=== PATIENT | female | born 1945 | race Caucasian/White ===

== ENCOUNTER 2023-08-13 11:17 | Observation (INO) ==
--- OUTSIDE RECORDS SUMMARY | 2023-08-13 11:20 | External Medical Summary | Continuity of Care Document ---
Author Name Unknown Organization [facility] Address [address] [place] [id number] Care Team Providers Care Supervisor Housecleaner Name Role Phone Suzanne Lester Primary Care Physician [phone] Encounter [facility] [id number] Date(s): 05/17/23 - 05/17/[address] [phone] Discharge Disposition: Home or Self Care Attending Physician: DO Lester Regina W Referring Physician: DO Lester Regina W Results Radiology Reports * Exam Date Time Procedure Performing Provider Status 05/17/23 10:03 AM VL Ankle-Brachial Index- Limited Gisell Ceballos; Final Notes: (VL Ankle-Brachial Index- Limited) Reason For Exam: Arterial Duplex - Other disorder of circulatorysystem VL Ankle-Brachial Index- Limited [facility] FINAL REPORT Name: WILFREDO CASTELLANO : 1945 Visit: [id number] Date: 17 May 2023 TYPE OF TEST: Peripheral Arterial Testing REASON FOR TEST disorder of circulatory system, unable to find pulses INTERPRETATION/FINDINGS Resting ankle/brachial indices and waveform analysis of the bilateral lower extremities reveals: 1. Triphasic Doppler waveforms in the bilateral common femoral, popliteal, distal posterior tibial, and distal anterior tibial arteries. 2. The right ankle/brachial index is 1.12 and the left ankle/brachial index is 1.17. 3. The right great toe pressure is 111mmHg and the left great toe pressure is 126mmHg. No prior exam available for comparison. IMPRESSION/COMMENTS I have personally reviewed the data relevant to the interpretation of this study. TECHNOLOGIST: Gisell Anthony RVT PHYSICIAN: Carl James MD Signed: 05/17/2023 12:09 PM Final Dictated by:MD James Aditya Dictated DT/TM:05/17/2023 12:09 Signed by:MD James Aditya Signed (Electronic Signature):05/17/2023 12:09 Transcribed by: Social History Social History Type Response Sex Female Patient Care team information Care Team Personnel Name: DO Lester Regina W Position: Referring Member Role: Primary Care Provider Address: Address: [address] [place] [id number]
--- OUTSIDE RECORDS SUMMARY | 2023-08-13 11:20 | External Medical Summary | Summary of Care ---
Author Name Unknown Organization [facility] Address [address] [place] [address] Phone [phone] Care Team Providers Care Design Center Consultant Name Role Phone Suzanne Lester Primary Care Provider [phone] Encounter Details Date Type Department Care Team Description 04/21/2023 Orders Only [facility], [place] [address] *DO NOT REMOVE THIS DEPARTMENT* [place] [address] Requisition, External Radiology [address] [place] [address] Allergies Active Allergy Reactions Severity Noted Date Comments No Known Drug Allergy 12/13/2005 documented as of this encounter (statuses as of 04/21/2023) Medications Medication Sig Dispensed Refills Start Date End Date Status Glucose Blood (JANETT CONTOUR TEST) STRPIndications:Diabet es ([facility]) check blood sugar daily and as needed up to 3x daily. DX: 250.00 Type II DM 100 Strip 5 08/27/2016 Active scopolamine (TRANSDERM-SCOP, 1.5 MG,) 1.5 MG patchIndications:Dizzi ness,Seasickness 1 disc behind ear at least 4 hour before travel and esdras 3 days as needed 8 Patch 1 09/21/2016 Active alendronate (FOSAMAX) 70 MG TabletIndications:High risk for fracture due to osteoporosis by DEXA scan Take 1 Tab by mouth once a week. with 8 oz. water 30 minutes before first meal of the day. Remain upright for 30 min after taking tablet. 15 Tab 5 09/21/2016 Active GLIPIZIDE XL 2.5 MG [id number]:Type 2 diabetes mellitus with hemoglobin A1c goal of less than 8.0% (HCC) Take 1 Tab by mouth 2 times a day. Take 10 minutes before meals or with meals. 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 documented as of this encounter (statuses as of 04/21/2023) Resolved Problems Problem Noted Date Resolved Date Type 2 diabetes mellitus wit h hemoglobin A1c goal of less than 7.0% 11/22/2014 07/31/2015 Overview: ICD-10 update of inactive term Essential hypertension 11/16/2010 5 Overview: ICD-10 update of inactive term Polymyalgia rheumatica 04/04/2008 5 Diabetes 03/31/2015 documented as of this encounter (statuses as of 04/21/2023) Social History Tobacco Use Types Packs/Day Years Used Date Smoking Tobacco: Never Smokeless Tobacco: Never Alcohol Use Standard Drinks/Week Comments Yes 0 (1 standard drink = 0.6 oz pur e alcohol) 1 glass of wine occ. Sex Assigned at Date Recorded Not on file Job Start Date Occupation Industry Not on file Not on file Not on file documented as of this encounter Plan of Treatment Health Maintenance Due Date Last Done Comments COVID-19 Vaccine (#1) 1945 Pneumococcal Vaccine: 65+ Years (1 - PCV) 1951 Hepatitis C Screening 1962 DTaP,Tdap,and Td Vaccines (1 - Tdap) 1963 VITAMIN D LEVEL ONCE IN A LIFETIME-USE SMARTSET# [id number] 1984 Zoster Vaccines (1 of 2) 1994 DIABETES-EYE EXAM 06/22/2017 06/22/2016, 05/16/2013 DIABETES-FOOT EXAM 09/21/2017 09/21/2016, 1 10/01/2014, 07/04/2014 HbA1c 10/19/2017 04/19/2017, 01/21, 09/20/2016, Additional history exists Depression Screening, Annual for Pts 12 and Over 01/11/2018 01/11/2017 Albumin/Creatinine Ratio 02/16/2018 017, 03/29/2016, 11/27/2015, Additional history exists FOBT ANNUALLY,AGES 18-90 05/09/2018 05/09/2017 (Refu sed) GFR 04/09/2021 04/09/2020, 03/23, 02/16/2017, Additional history exists DXA Scan 02/18/2023 02/18/2021, 12/08/2015 Influenza Vaccine (FLU shot) (#1) 2023 05/09/2017 (Refused) GARDASIL-HPV IMMUNIZATION SERIES Aged Out No longer eligible based on patient's age to complete this topic Hepatitis B Aged Out No longer eligi ble based on patient's age to complete this topic MENINGOCOCCAL (MENACTRA/MENVEO) Aged Out No longer eligible based on patient's age to complete this topic documented as of this encounter Medical Devices Not on filedocumented as of this encounter Care Teams Design Center Consultant Relationship Specialty Start Date End Date Suzanne Lester, DO [address] [place] [id number] PCP - General Internal Medicine 05/07/20 documented as of this encounter
[2023-08-13 11:52] LABS: iSTAT Creatinine 1.1 mg/dl (0.6-1.3); iSTAT Hemoglobin 13.6 g/dl (12.0-16.0); iSTAT Ionized Calcium 1.14 mmol/l (1.12-1.32); iSTAT Potassium 3.8 mmol/L (3.3-5.0)
[2023-08-13 11:56] LABS: Hematocrit (blood only) 40.5 % (37.0-47.0); Hemoglobin 13.6 g/dl (12.0-16.0); Mean Corpuscular Hemoglobin 28.8 pg (25.0-34.0); Mean Corpuscular Hgb Conc 33.6 g/dL (32.0-36.0); Mean Corpuscular Volume 85.6 fL (80.0-100.0); Mean Platelet Volume 10.5 fL (9.4-12.4); Platelet Count 223 K/uL (130-400); RDW Coefficient of Variation 13.2 % (11.5-14.5); RDW Standard Deviation 41.3 fL (36.4-46.3); Red Blood Count 4.73 M/uL (4.20-5.40)
--- NOTE | 2023-08-13 12:08 | Emergency Department Note ---
History of Present Illness General Chief complaint: Stroke/CVA Symptoms Stated complaint: STROKE SYMPTOMS Time Seen by Provider: 08/13/23 11:54 History of Present Illness 78-year-old female presents emergency department she states on Tuesday that she had stopped at a red light she had tingling in the left side of her face her left forehead and she had pain in the left shoulder she then noticed that the vision started to get blurry and changed across her eyes from the left side over to the right lasting only a few minutes. Patient states that she went home she was doing fine and then today she states that she had generalized weakness she started to feel tingling on the left side she had a temporal headache and thought that she might of had some chest pain. Patient denies neck pain denies fever denies trauma is not currently on any anticoagulation. Patient is on insulin for which she started 6 weeks ago. Patient denies a history of hypoglycemia. There are no other mitigating or alleviating factors Home Medications Medication Instructions Recorded Confirmed Type aspirin 81 mg tablet,delayed 81 mg PO DAILY 08/13/23 08/13/23 History release Allergies Allergy/AdvReac Type Severity Reaction Status Date / Time No Known Allergies Allergy Unverified 08/13/23 11:34 Past Med/Surg History Medical History Lyme disease pt currently being tx with Doxycycline for possible lyme Degenerative disc disease Osteoarthritis Diabetes mellitus, type 2 Surgical History Family history of pseudocholinesterase deficiency FATHER "ALLERGY TO SUCCS" History of carpal tunnel release LEFT History of cholecystectomy History of appendectomy History of tooth extraction History of tonsillectomy Family History Grandmother Family history of diabetes mellitus Social History Smoking Status: Never smoker Second Hand Exposure: No; Do You Dip or Chew Tobacco: No; Hx Alcohol Use: Yes Alcohol type: wine Hx Substance Use: No Preferred Language: Hebrew Communication Ability: Effective Curtain Stretcher Required: No Beliefs That Will Affect Care: Zoroastrian Zoroastrian Beliefs: ROMAN CATHOLIC Current Living Situation: Alone Feels Safe at Home: Yes Assistive Devices: Glasses and Walker Review of Systems A total of 10 systems reviewed and were otherwise negative Musculoskeletal: no neck pain Neurologic: + generalized weakness, + tingling and + headache(s) Physical Exam Vital Signs Vital Signs - 24 hr 08/13/23 11:20 08/13/23 12:05 08/13/23 13:17 Temperature 36.6 C Temperature Source Temporal Artery Scan Pulse Rate 84 82 Pulse Rate [Left Finger] 74 Respiratory Rate 20 20 Respiratory Effort / Characteristics Non-Labored Respiratory Depth Normal Blood Pressure 181/87 H Blood Pressure [Left Arm] 120/90 Blood Pressure Mean 118 Blood Pressure Mean [Left Arm] 100 Blood Pressure Position [Left Arm] Lying Pulse Oximetry 98 97 Oxygen Delivery Method Room Air Room Air Sepsis Recent Fever Within 48 Hours No Sepsis New/Unexplained Change in Mental Status Yes Sepsis Action Taken by Nursing No Action Required GENERAL: Patient is awake alert in no acute distress patient is resting comfortably and showing no signs of anxiety EYES: The conjunctivae are clear. The pupils are round and reactive. EARS, NOSE, MOUTH AND THROAT: The nose is without any evidence of any deformity. Mucous membranes are moist. Tongue is midline. NECK: The neck is nontender and supple. RESPIRATORY: Normal respiratory effort is noted there is no evidence of wheezing rhonchi or rales CARDIOVASCULAR: Regular rate and rhythm noted there no murmurs rubs or gallops normal S1 normal S2. GASTROINTESTINAL: The abdomen is soft. Abdomen is nontender. BACK: No midline tenderness or or step-off noted range of motion in flexion extension as well as rotation no signs of muscle spasm noted MUSCULOSKELETAL/EXTREMITIES: There is no evidence of gross deformity full range of motion is noted in the hips and shoulders. SKIN: There is no obvious evidence of any rash. There are no petechiae, pallor or cyanosis noted. NEUROLOGIC: Patient is awake alert and oriented x3 strength is symmetric; NIH of 0 Course Reevaluation(s) Reevaluation #1: Patient's resting in no distress on repeat examination. Patient has an NIH of 0. Time: 12:44 Consultations Consultation #1: Case was discussed with Dr. Amaya from [facility] at 12:44 PM patient will be given aspirin Time: 12:45 Medical Decision Making Medical Records Attestation: I reviewed the patient's medical records. Home Medications Current Medication List: was personally reviewed by me Laboratory Data Attestation: I reviewed the patient's lab results. 08/13/23 11:35 08/13/23 11:35 Lab Results 08/13/23 08/13/23 Range/Units 11:35 11:40 WBC 6.00 (4.8-10.8) K/ul RBC 4.73 (4.20-5.40) M/uL Hgb 13.6 (12.0-16.0) g/dl POC Hgb 13.6 (12.0-16.0) g/dl Hct 40.5 (37.0-47.0) % POC Hct 40 (37-47) % MCV 85.6 (80.0-100.0) fL MCH 28.8 (25.0-34.0) pg MCHC 33.6 (32.0-36.0) g/dL RDW Std Deviation 41.3 (36.4-46.3) fL RDW Coeff of Madhavi 13.2 (11.5-14.5) % Plt Count 223 (130-400) K/uL MPV 10.5 (9.4-12.4) fL PT 10.2 (9.0-12.0) Seconds INR 0.9 (0.9-1.1) APTT 26 (21-31) Seconds PTT Ratio 0.9 POC Sodium 141 (135-144) mmol/L Sodium 142 (136-145) mmol/L POC Potassium 3.8 (3.3-5.0) mmol/L Potassium 3.8 (3.5-5.1) mmol/L POC Chloride 105 (101-112) mmol/L Chloride 107 (98-107) mmol/L Carbon Dioxide 27 (21-32) mmol/L POC Total CO2 24 (24-31) mmol/L Anion Gap 8 (3-11) POC Anion Gap 17.0 (16-25) mmol/L POC BUN 22 H (7-18) mg/dl BUN 23 (6-23) mg/dl Creatinine 1.09 (0.6-1.2) mg/dl POC Creatinine 1.1 (0.6-1.3) mg/dl Est Cr Clr Drug Dosing 40.0 ml/min Est GFR ( Amer) 55.9 ml/min Est GFR (Non-Af Amer) 48.2 ml/min BUN/Creatinine Ratio 21.1 H (10-20) Glucose 133 H (70-99(Fasting)) mg/dl POC Glucose (other) 130 H (70-99) mg/dl Calcium 8.7 (8.6-10.3) mg/dl POC Ioniz Calcium Dylon 1.14 (1.12-1.32) mmol/l Magnesium 2.0 (1.7-2.4) mg/dl Total Bilirubin 0.5 (0.2-1.0) mg/dl AST 15 (13-39) U/L ALT 13 (7-52) U/L Alkaline Phosphatase 66 (34-104) U/L Total Protein 6.7 (6.0-8.3) gm/dl Albumin 4.0 (3.4-5.0) gm/dl Globulin 2.7 (2.5-4.0) gm/dl Albumin/Globulin Ratio 1.5 (0.9-2) Imaging Data Attestation: I personally reviewed and interpreted this imaging study as follows: My Impression: CT brain per my interpretation negative for acute for bleed, chest x-ray interpreted by me negative for infiltrate Radiologist's Impression: Chest X-Ray 08/13/23 11:32 XR chest 1V portable CLINICAL HISTORY: stroke alert COMPARISON STUDY: Chest radiograph June 06, 2018. FINDINGS: Lung volumes are normal. Lungs are clear. There is no pneumothorax or pleural effusion. Cardiac size is normal. A suspected hiatal hernia is again noted. There is no evidence for pulmonary edema. IMPRESSION: No acute cardiopulmonary findings. ACT 112: Negative or not required by law. Electronically signed by: Benjamin Galicia M.D. 08/13/2023 12:[address] 08/13/23 11:32 CT OF THE HEAD WITHOUT CONTRAST CLINICAL HISTORY: left eye visual disturbance. COMPARISON STUDY: No previous studies for comparison. CT DOSE: 547.75 mGy.cm TECHNIQUE: Helical axial images of the head were obtained without IV contrast. Automated exposure control was utilized for the study. A dose lowering technique was utilized adhering to the principles of ALARA. FINDINGS: No acute intracranial hemorrhage, midline shift or mass effect is present. Bilateral basal ganglia calcifications are present. Calcifications within the bilateral cerebellar hemispheres are also present. The ventricular system is unremarkable. The basal cisterns are patent. No extra-axial collections are present. There are no findings to suggest acute dural sinus thrombosis or acute territorial infarct. No significant calvarial abnormalities are present. Visualized portions of the sinuses and mastoid air cells are clear. IMPRESSION: No acute intracranial findings. ACT 112: Negative or not required by law. Electronically signed by: Benjamin Galicia M.D. 08/13/2023 12:08 PM ECG Data Attestation: I personally reviewed and interpreted this ECG as follows: Additional Comments: EKG interpreted by me normal sinus rhythm rate of 80, short MS interval, no obvious ST segment elevation or depression normal axis Telemetry was ordered by me interpreted as normal sinus rhythm rate of 80 MDM Narrative Medical decision making differential diagnosis includes TIA, CVA, intracranial hemorrhage, hypertensive episode, acute coronary syndrome, hypoglycemia Plan is to check stroke protocol, CAT scan, labs Patient's symptoms started 4 days prior to arrival. Patient is currently not having any significant symptoms and is not a tPA candidate I have reviewed a discharge summary of 2018 regarding the patient having a left knee arthroplasty Impression & Plan TIA (transient ischemic attack) Discharge Plan Visit Data Chief Complaint: Stroke/CVA Symptoms Stated Complaint: STROKE SYMPTOMS ED Provider: Nir Kelley Discharge Problem: TIA (transient ischemic attack) Patient Disposition: Admitted As Inpatient Forms Stand Alone Forms: My [facility] Prescriptions Prescriptions: No Action aspirin 81 mg Tablet,Delayed Release (Dr/Ec) 81 mg PO DAILY Referrals Referrals: Suzanne Lester D.O. [Primary Care Provider] -
--- NOTE | 2023-08-13 12:10 | CT Scan Report ---
CT OF THE HEAD WITHOUT CONTRAST CLINICAL HISTORY: left eye visual disturbance. COMPARISON STUDY: No previous studies for comparison. CT DOSE: 547.75 mGy.cm TECHNIQUE: Helical axial images of the head were obtained without IV contrast. Automated exposure con trol was utilized for the study. A dose lowering technique was utilized adhering to the principles o f ALARA. FINDINGS: No acute intracranial hemorrhage, midline shift or mass effect is present. Bilateral basal ganglia calcifications are present. Calcifications within the bilateral cerebellar hemispheres are al so present. The ventricular system is unremarkable. The basal cisterns are patent. No extra-axial col lections are present. There are no findings to suggest acute dural sinus thrombosis or acute territor ial infarct. No significant calvarial abnormalities are present. Visualized portions of the sinuses a nd mastoid air cells are clear. IMPRESSION: No acute intracranial findings. ACT 112: Negative or not required by law. Electronically signed by: Benjamin Galicia M.D. 08/13/2023 12:08 PM
--- NOTE | 2023-08-13 12:16 | XRay Report ---
XR chest 1V portable CLINICAL HISTORY: stroke alert COMPARISON STUDY: Chest radiograph June 06, 2018. FINDINGS: Lung volumes are normal. Lungs are clear. There is no pneumothorax or pleural effusion. Car diac size is normal. A suspected hiatal hernia is again noted. There is no evidence for pulmonary cristhian ma. IMPRESSION: No acute cardiopulmonary findings. ACT 112: Negative or not required by law. Electronically signed by: Benjamin Galicia M.D. 08/13/2023 12:15 PM
[2023-08-13 12:19] LABS: Albumin Globulin Ratio 1.5 (0.9-2); BUN Creatinine Ratio 21.1 (10-20); Bilirubin,Total 0.5 mg/dl (0.2-1.0); Calcium 8.7 mg/dl (8.6-10.3); Est GFR (African American) 55.9 ml/min; Est GFR (Non-African American) 48.2 ml/min; Globulin 2.7 gm/dl (2.5-4.0); Potassium 3.8 mmol/L (3.5-5.1); Total Protein 6.7 gm/dl (6.0-8.3)
[2023-08-13 12:23] LABS: INR 0.9 (0.9-1.1); Partial Thromboplastin Ratio 0.9; Partial Thromboplastin Time 26 Seconds (21-31); Prothrombin Time 10.2 Seconds (9.0-12.0)
[2023-08-13] MEDS ORDERED: ASPIRIN 325 MG ECTAB PO SCH (12:45)
--- NOTE | 2023-08-13 12:49 | History & Physical Report ---
Date of Service August 13, 2023 Assessment & Plan (1) Stroke-like symptoms: Plan: Episode of left facial tingling, left shoulder pain, headache and blurry vision on Friday 08/10 She then woke up on the morning of 08/13 with left shoulder pain and decreased sensation on the left side in the face, UE, and LE No prior hx of CVA or TIA Head CT revealed NAF Head/neck CTA revealed NAF Brain MRI revealed no acute findings, but noted 6 mm T2 hypertensive focus within the left cerebellar hemisphere favoring an old lacunar infarct, as well as small vessel disease Echo ordered, pending Patient reports she took aspirin 81 mg the morning of 08/13; ordered additional aspirin 243 mg p.o. in the ED EKG showed NSR with short SD at 80 bpm; QTc 452 Patient passed dysphagia screen; okay to eat Continuous telemetry monitoring Fall precautions PT/OT consulted Continue aspirin 81 mg daily while inpatient A.m. CBC, BMP, A1c, fasting lipid panel (2) Diabetes mellitus, type 2: Plan: Last A1c was 8.1% on 06/06/18 No T2DM p.o. medications Patient recently started taking Lantus 10u HS 6 weeks ago Continue Lantus 10u HS SSI; target BSG range 160154fb/dL, CF 55, carb ratio T2DM diet BSG ACHS Adjust regimen as needed AM A1c (3) Intermittent chest pain: Plan: Started this week 3 episodes lasting several minutes of sharp pain located at the left upper chest; patient describes it as a "bubble bursting" Troponin WNL at 5.9 Echo ordered (as above) Continuous telemetry monitoring Nitrostat as needed Plan Disposition: Obs -admit to [facility] telemetry DNR/DNI T2DM diet DVT PPx: Lovenox 40 mg SQ q24h History of Present Illness Chief Complaint: Stroke/CVA/TIA symptoms Primary Care Provider: Suzanne Mujica is a pleasant 78-year-old female with PMH of T2DM. She presented for left shoulder pain, and left arm numbness and tingling that started at 0700 on 08/13. She recently had an episode of blurry vision, left arm pain, left face tingling, and headache while driving and stopped at a red light on Friday 08/10; this lasted for approximately 15 minutes. She reported she had chest pain at the time that "felt like a bubble bursting"; she denies having facial droop, slurred speech, or sweating at the time. She reports 3 episodes of intermittent chest pain that radiates down her upper left arm this past week; she describes it as stabbing; these episodes last a few minutes. No prior episodes like this. On 08/13, she woke up with stiff legs, and was quivering; however this sometimes happens when she has low blood sugar. She takes Lantus 10u at nighttime, and has been since starting 6 weeks ago. No personal history of stroke, however she has a family history of brother having strokes. She reports that she took aspirin 81 mg on morning 08/11, and then again on Tuesday morning 08/13 before coming in the hospital. No other home medications. Vital stable at time of admission. ROS: Patient endorses cold intolerance, left-sided face sensation (resolved), intermittent CP, numbness. Patient denies fever, sweats, chills, V[place]LE[place], dizziness, lightheadedness, slurred speech, facial droop, unilateral deficits, SOB, pleuritic CP, abdominal pain, N/V/D, urinary s/s, burning with urination, blood in urine/stool, back pain, numbness/tingling in the legs. Allergies Allergy/AdvReac Type Severity Reaction Status Date / Time No Known Allergies Allergy Unverified 08/13/23 11:34 Home Medications Medication Instructions Recorded Confirmed Type aspirin 81 mg tablet,delayed 81 mg PO DAILY 08/13/23 08/13/23 History release Past Med/Surg History Medical History (Updated 08/13/23 @ 14:01 by Jaziel Plasencia PA-C) Lyme disease pt currently being tx with Doxycycline for possible lyme Degenerative disc disease Osteoarthritis Diabetes mellitus, type 2 Surgical History Family history of pseudocholinesterase deficiency FATHER "ALLERGY TO SUCCS" History of carpal tunnel release LEFT History of cholecystectomy History of appendectomy History of tooth extraction History of tonsillectomy Family History Grandmother Family history of diabetes mellitus Social History Smoking Status: Never smoker Second Hand Exposure: No; Do You Dip or Chew Tobacco: No; Hx Alcohol Use: Yes Alcohol type: wine Hx Substance Use: No Preferred Language: Polish Communication Ability: Effective Hosiery Mater Required: No Beliefs That Will Affect Care: Yarsani Yarsani Beliefs: HINDUISM Current Living Situation: Alone Feels Safe at Home: Yes Assistive Devices: Glasses and Walker Review of Systems Review of Systems: See HPI above Physical Exam Physical Exam: General: no acute distress; pleasant affect; non-toxic appearing; well- nourished; cooperative HEENT: normocephalic, atraumatic; no scleral icterus; PERRLA w/ EOMs intact; moist mucus membrane; vision and hearing grossly intact Neck: supple; no JVD; no lymphadenopathy; trachea midline Skin: warm, dry without signs of tenting; no cyanosis; no rashes, bruising, lesions, or erythema noted CV: chest wall NTP; RRR; S1/S2 normal; no murmurs/rubs/gallops; pulses intact and symmetric at radial, DP, and PT Lungs: no acute respiratory distress; symmetrical chest wall expansion; clear breath sounds across all lung lozada w/o adventitious sounds; no wheezing ABD: Soft, NTP; BS present; no rebound/guarding; no ascites; no distention; negative CVA tenderness MSK: no tics or fasciculations; no edema noted in the LEs b/l, nonerythematous; 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; full active ROM in UE/LEs b/l; decreased strength and RLE when lifting off bed at the hip (however, patient noted this is ongoing, and that this is her "bad leg") Neuro: A&Ox3; normal mood and affect; fluent speech; no facial droop; patient endorses diminished sensation in the left lower extremity, left upper extremity, and across the left face Results & Data Results & Data Vital Signs (Past 12 Hours) Vital Signs Temp Pulse Resp BP Pulse Ox O2 Del Method 08/13/23 12:05 82 08/13/23 11:20 36.6 C 84 20 181/87 H 98 Room Air Laboratory Results Abnormal lab results 08/13/23 08/13/23 Range/Units 11:35 11:40 POC BUN 22 H (7-18) mg/dl BUN/Creatinine Ratio 21.1 H (10-20) Glucose 133 H (70-99(Fasting)) mg/dl POC Glucose (other) 130 H (70-99) mg/dl Diagnostic Findings Chest X-Ray 08/13/23 11:32 XR chest 1V portable CLINICAL HISTORY: stroke alert COMPARISON STUDY: Chest radiograph June 06, 2018. FINDINGS: Lung volumes are normal. Lungs are clear. There is no pneumothorax or pleural effusion. Cardiac size is normal. A suspected hiatal hernia is again noted. There is no evidence for pulmonary edema. IMPRESSION: No acute cardiopulmonary findings. ACT 112: Negative or not required by law. Electronically signed by: Benjamin Galicia M.D. 08/13/2023 12:[address] 08/13/23 11:32 CT OF THE HEAD WITHOUT CONTRAST CLINICAL HISTORY: left eye visual disturbance. COMPARISON STUDY: No previous studies for comparison. CT DOSE: 547.75 mGy.cm TECHNIQUE: Helical axial images of the head were obtained without IV contrast. Automated exposure control was utilized for the study. A dose lowering yousuf hnique was utilized adhering to the principles of ALARA. FINDINGS: No acute intracranial hemorrhage, midline shift or mass effect is present. Bilateral basal ganglia calcifications are present. Calcifications within the bilateral cerebellar hemispheres are also present. The ventricular system is unremarkable. The basal cisterns are patent. No extra-axial collections are present. There are no findings to suggest acute dural sinus thrombosis or acute territorial infarct. No significant calvarial abnormalities are present. Visualized portions of the sinuses and mastoid air cells are clear. IMPRESSION: No acute intracranial findings. ACT 112: Negative or not required by law. Electronically signed by: Benjamin Galicia M.D. 08/13/2023 12:08 PM Code Status & VTE Plan Code Status DNR/DNI VTE Prophylaxis Plan VTE Prophylaxis will be ordered: Yes Supervising Physician Co-Signing Physician Notes Patient seen and examined, chart reviewed, case discussed with KERVIN Madden and I agree with the assessment and plan as above except as otherwise noted Labs and images reviewed Sil is a 78-year-old female with past medical history of type 2 diabetes recently started on insulin who had abrupt onset of blurry vision, left arm pain, left face tingling, and unsteady feeling with some chest pain which lasted for 15 minutes while she was stopped at a red light Friday 08/10. She denies any expressive or receptive aphasia and no dysarthria. In the last week she has had 3 episodes of intermittent chest pain which traveled up her left arm with a stabbing quality which went away after a few minutes. She has continued to have left-sided arm and leg sensory asymmetry compared to the right, although strength is symmetrical and normal and she has no numbness in the face at time of admission. No facial asymmetry. Patient did take a baby aspirin, has been ordered 243 mg to make a full dose. Troponin and echo are pending. EKG on admission is normal sinus rhythm no ST segment changes, no territorial T wave changes, and good R wave progression. CT of the head without acute findings. MRI shows old lacunar stroke and likely minimal small vessel disease. Agree with continuing aspirin daily, secondary risk management and continue moderate to high-dose statin with lipids pending, and blood pressure control. Patient currently normotensive Agree with assessment and evaluation as above. PG Care Time/CCT Total # of Minutes Spent Total Time Spent with Patient: Total time spent is greater than 50% in coordination of care (as documented) at patient's floor/unit and/or counseling patient: [place] [address] INT INP/OBS CARE 2/55MIN Patient Type New History Comprehensive Exam Comprehensive Medical Decision Making Moderate Complexity Diagnoses Stroke-like symptoms R29.90 Diabetes mellitus, type 2 E11.9 Intermittent chest pain R07.9
[2023-08-13] MEDS ORDERED: ASPIRIN 81 MG CHEW PO STA (13:35)
[2023-08-13] MEDS ORDERED: OPTIRAY 320 125ml IV ONE (14:06)
[2023-08-13 14:20] LABS: Troponin I High Sensitivity 5.9 pg/ml (0-14)
--- NOTE | 2023-08-13 14:20 | Magnetic Resonance Report ---
MRI OF THE BRAIN WITHOUT CONTRAST CLINICAL HISTORY: Dizziness. Blurred vision. Evaluate for stroke. COMPARISON STUDY: Head CT performed earlier today. TECHNIQUE: Utilizing a 1.5 Bing magnet and dedicated coil, multiplanar, multiecho imaging of the bra in was performed without IV contrast. FINDINGS: There are no foci of restricted diffusion to suggest acute infarct. No acute intracranial h emorrhage, midline shift or mass effect is present. Ventricular system is unremarkable. Basal cistern s are patent. There are no extra-axial collections. Flow-voids for the major intracranial vessels are present. No intracranial masses are identified on unenhanced exam. A few small white matter T2 hyper intense foci suggest minimal small vessel disease. 6 mm T2 hyperintense focus within the left cerebel lar hemisphere favors an old lacunar infarct. IMPRESSION: No acute intracranial findings. ACT 112: Negative or not required by law. Electronically signed by: Benjamin Galicia M.D. 08/13/2023 2:19 PM
--- NOTE | 2023-08-13 14:34 | CT Scan Report ---
CT ANGIOGRAPHY OF THE NECK WITH CONTRAST CLINICAL HISTORY: CVA/TIA. Visual disturbance. COMPARISON STUDY: No previous studies for comparison. Technique: CT angiography of the carotid and vertebral arteries was obtained using Optiray and 3D rec onstruction on an independent workstation. NASCET criteria was utilized. Automated exposure control was utilized for the study. A dose lowering technique was utilized adhering to the principles of ALA RA. CT DOSE: 389.1 mGy.cm Findings: Partially calcified 7 mm left upper lobe nodule is likely benign. There is no cervical lymp hadenopathy. No cervical spine fractures are present. The bilateral common carotid, cervical internal carotid and vertebral arteries are patent. There is no stenosis or dissection within these vessels. There is minimal plaque within the proximal bilateral internal carotid arteries without stenosis. The re is no aneurysm within the neck. IMPRESSION: No stenosis or dissection within the bilateral common carotid, cervical internal carotid or vertebral arteries. ACT 112: Negative or not required by law. Electronically signed by: Benjamin Galicia M.D. 08/13/2023 2:32 PM
--- NOTE | 2023-08-13 14:37 | CT Scan Report ---
CTA ANGIOGRAPHY OF THE HEAD CLINICAL HISTORY: CVA/TIA. Visual disturbance. COMPARISON STUDY: Head CT and MRI of the brain performed earlier today. TECHNIQUE: Helical axial images of the head were obtained following uneventful intravenous administr ation of 119 cc of Optiray. Sagittal and coronal reconstructions were viewed as well as maximal inten sity projections on an independent 3-D workstation. Automated exposure control was utilized for the study. A dose lowering technique was utilized adhering to the principles of ALARA. FINDINGS: No acute intracranial hemorrhage is identified on this exam. Ventricular system is normal. Basal cisterns are patent. There are no extra-axial collections. The bilateral M1, M2, A1 and A2 segm ents are patent. There is mild plaque within the cavernous carotids without stenosis. Posterior circu lation is also an intact. There are are large bilateral posterior communicating arteries. No central vessel occlusion is identified. There is no dissection within the intracranial vessels. IMPRESSION: No vessel occlusion. No intracranial aneurysm. ACT 112: Negative or not required by law. Electronically signed by: Benjamin Galicia M.D. 08/13/2023 2:36 PM
[2023-08-13] MEDS ORDERED: GLUCOSE 10 TAB/TUBE PO PRN (14:52)
[2023-08-13] MEDS ORDERED: GLUCOSE 40% GEL 15 GM TUBE PO PRN (14:52)
[2023-08-13] MEDS ORDERED: PHARMACIST DISCHARGE MED REC CONSULT PRN (14:52)
[2023-08-13] MEDS ORDERED: GLUCAGON FOR INJ 1 MG VIAL SQ PRN (14:52)
[2023-08-13] MEDS ORDERED: NITROGLYCERIN SL 0.4 MG/TAB TAB SL PRN (14:52)
[2023-08-13] MEDS ORDERED: ACETAMINOPHEN 325 MG TAB PO PRN (14:52)
[2023-08-13] MEDS ORDERED: DEXTROSE 50% 50 ML SYRINGE IV PRN (14:52)
[2023-08-13] MEDS ORDERED: CARBOHYDRATES FOR HYPOGLYCEMIA PO PRN (14:52)
[2023-08-13] MEDS: INSULIN ASPART PER UNIT CHARGE SC SCH ×2 (18:21→22:20)
[2023-08-13] MEDS ORDERED: ENOXAPARIN INJ 40 MG/0.4 ML SYR SQ SCH (19:00)
[2023-08-13] MEDS ORDERED: LANTUS PER UNIT CHARGE SQ SCH (21:00)
[2023-08-14 08:15] LABS: Basophils # (auto) 0.05 K/uL (0.00-0.20); Basophils % (auto) 0.9 %; Eosinophils % (auto) 5.3 %; Hematocrit (blood only) 39.8 % (37.0-47.0); Hemoglobin 13.2 g/dl (12.0-16.0); Immature Granulocytes # (auto) 0.01 K/uL (0.01-0.20); Immature Granulocytes % (auto) 0.2 %; Lymphocytes # (auto) 1.53 K/uL (1.20-3.40); Lymphocytes % (auto) 27.2 %; Mean Corpuscular Hemoglobin 28.5 pg (25.0-34.0); Mean Corpuscular Hgb Conc 33.2 g/dL (32.0-36.0); Mean Platelet Volume 10.5 fL (9.4-12.4); Monocytes # (auto) 0.44 K/uL (0.11-0.59); Monocytes % (auto) 7.8 %; Neutrophils # (auto) 3.29 K/uL (1.40-6.50); Neutrophils % (auto) 58.6 %; Platelet Count 202 K/uL (130-400); RDW Coefficient of Variation 13.5 % (11.5-14.5); Red Blood Count 4.63 M/uL (4.20-5.40); White Blood Count 5.62 K/ul (4.8-10.8)
[2023-08-14 08:44] LABS: BUN Creatinine Ratio 21.4 (10-20); Calcium 8.5 mg/dl (8.6-10.3); Chol HDL Ratio 2.5 (0-5); Creatinine Clr Calc Pharmacy 44.2 ml/min; Est GFR (African American) 63.6 ml/min; Est GFR (Non-African American) 54.9 ml/min
[2023-08-14] MEDS: INSULIN ASPART PER UNIT CHARGE SC SCH ×2 (08:52→12:56)
[2023-08-14] MEDS ORDERED: ASPIRIN 81 MG ECTAB PO SCH (09:00)
--- NOTE | 2023-08-14 12:07 | Discharge Summary ---
Date of Service August 14, 2023 Admission HPI Per Admitting Provider Sil is a pleasant 78-year-old female with PMH of T2DM. She presented for left shoulder pain, and left arm numbness and tingling that started at 0700 on 08/13. She recently had an episode of blurry vision, left arm pain, left face tingling, and headache while driving and stopped at a red light on Friday 08/10; this lasted for approximately 15 minutes. She reported she had chest pain at the time that "felt like a bubble bursting"; she denies having facial droop, slurred speech, or sweating at the time. She reports 3 episodes of intermittent chest pain that radiates down her upper left arm this past week; she describes it as stabbing; these episodes last a few minutes. No prior episodes like this. On 08/13, she woke up with stiff legs, and was quivering; however this sometimes happens when she has low blood sugar. She takes Lantus 10u at nighttime, and has been since starting 6 weeks ago. No personal history of stroke, however she has a family history of brother having strokes. She reports that she took aspirin 81 mg on morning 08/11, and then again on 08/13 before coming in the hospital. No other home medications. Vital stable at time of admission. ROS: Patient endorses cold intolerance, left-sided face sensation (resolved), intermittent CP, numbness. Patient denies fever, sweats, chills, [place], dizziness, lightheadedness, slurred speech, facial droop, unilateral deficits, SOB, pleuritic CP, abdominal pain, N/V/D, urinary s/s, burning with urination, blood in urine/stool, back pain, numbness/tingling in the legs. Principal Diagnosis TIA Discharge Exam General: A&Ox3. NAD. Cooperative. HEENT: Atraumatic, normocephalic. Vision/hearing intact. No visual field cuts. Pupil equal and reactive to light and accommodation. EOMs intact without nystagmus Pulm: CTAB A&P. -wheezes, -rales, -rhonchi. Symmetrical chest rise. No increased work of breathing. No respiratory distress. Cardiac: RRR, -mrg. Radial pulses intact and symmetrical. Abdominal: Nontender, nondistended, soft. BS present. Extremities: Perinatal Educator strength, hip flexion, ankle dorsiflexion/plantarflexion 5/5 without deficit or asymmetry. Sensation soft touch intact in hands and feet Discharge Data Allergies Allergy/AdvReac Type Severity Reaction Status Date / Time No Known Allergies Allergy Unverified 08/13/23 11:34 Consultations 08/13/23 12:39 ED Decision to Admit Stat 08/13/23 12:44 ED Decision to Admit Stat Ordered Studies 08/13/23 11:32 CT head/brain wo con Stat 08/13/23 13:16 MRI Brain [MR brain wo con] Stat 08/13/23 13:19 CTA head w con [CT angio head w con] Urgent CTA neck with con [CT angio neck with con] Urgent Hospital Course (1) Stroke-like symptoms: Summary: Sil is a 78-year-old female with a past medical history of diabetes recently started on Lantus and no prior history of TIA who had an episode of facial tingling, shoulder pain, headache, and blurry vision 08/10. This resolved after several minutes and then she had a recurrent episode of left facial, left upper extremity, left lower extremity numbness/tingling with some discomfort waking up on the left shoulder. Denied chest pain/pressure/diaphoresis/dyspnea. She was recommended for admission for evaluation of strokelike symptoms. CTA of the head and neck showed no stenosis or clinically significant flow limitation in the carotids/vertebral arteries/intracranial vessels and CT of the head was normal. Follow-up brain MRI showed an old lacunar 6 mm type II hyperintense focus likely old lacunar infarct without acute stroke or other abnormality. High-sensitivity troponin was normal and there were no ischemic changes on EKG. Patient did well overnight and had no deficits the following day. Based on highly suspicious TIA symptoms patient was recommended to start aspirin and atorvastatin for stroke prophylaxis. She was generally normotensive but had blood pressures uptrending up to 160s/170s during admission. She was recommended to check her blood pressures at home and if she is persistently abo ve goal and certainly above the 160s should start low-dose losartan 25 mg for blood pressure control with comorbid diabetes. ABCD2 moderate, discussed risk/beneifts of dual antiplatelet therapy for 3 weeks. On shared decision making pt prefers to maximize stroke prevention benefit due to hx of lacunar stroke strong clinical presentation for TIA without large territory infarct, asa/plaavix prescribed. Thinks she may have taken plaavix in the distant past but is unsure why, [facility] any intolerance/allergy and records of this are not available. Cardiac echo and bubble study was completed but pending final read at time of discharge, follow-up with final results to PCP. To do as outpatient: Continue aspirin 81 mg indefinitely - Plaavix 75mg x3 weeks Continue atorvastatin 40 mg indefinitely Losartan 25 mg prescribed, patient may take this if her blood pressure readings remain above goal Dose reduced glargine to 7 units and switch to morning dosing due to nighttime Below note copied for chart completion Episode of left facial tingling, left shoulder pain, headache and blurry vision on Friday 08/10 She then woke up on the morning of 08/13 with left shoulder pain and decreased sensation on the left side in the face, UE, and LE No prior hx of CVA or TIA Head CT revealed NAF Head/neck CTA revealed NAF Brain MRI revealed no acute findings, but noted 6 mm T2 hypertensive focus within the left cerebellar hemisphere favoring an old lacunar infarct, as well as small vessel disease Echo ordered, pending Patient reports she took aspirin 81 mg the morning of 08/13; ordered additional aspirin 243 mg p.o. in the ED EKG showed NSR with short MA at 80 bpm; QTc 452 Patient passed dysphagia screen; okay to eat Continuous telemetry monitoring Fall precautions PT/OT consulted Continue aspirin 81 mg daily while inpatient A.m. CBC, BMP, A1c, fasting lipid panel (2) Diabetes mellitus, type 2: Last A1c was 8.1% on 06/06/18 No T2DM p.o. medications Patient recently started taking Lantus 10u HS 6 weeks ago Continue Lantus 10u HS SSI; target BSG range 364175cb/dL, CF 55, carb ratio T2DM diet BSG ACHS Adjust regimen as needed AM A1c (3) Intermittent chest pain: Started this week 3 episodes lasting several minutes of sharp pain located at the left upper chest; patient describes it as a "bubble bursting" Troponin WNL at 5.9 Echo ordered (as above) Continuous telemetry monitoring Nitrostat as needed (4) TIA (transient ischemic attack): Plan Disposition: Obs -admit to MedSurg telemetry DNR/DNI T2DM diet DVT PPx: Lovenox 40 mg SQ q24h Total Time Total Time Spent Total Time Spent (In Minutes): Time spent including direct patient care, documentation, lab review, and counseling ~55 minutes day of discharge including stroke education. Discharge Plan Discharge Items Patient Disposition: Home - Self-Care Reason For Visit: STROKE-LIKE SYMPTOMS Discharge Diagnosis: TIA Activity: Resume your previous activity Non-emergency contact: Primary Care Provider Call non-emergency contact if: you have any medication questions Follow-up/Referrals: Suzanne Lester D.O. [Primary Care Provider] - Diet: Heart Healthy Addtl Attending Provider Instructions: You are seen in the hospital for evaluation of strokelike symptoms. You are found to have a old lacunar stroke on your MRI with no evidence of recent acute stroke. You have been started on medications as noted below. You have been started on aspirin 81 mg daily for secondary stroke prevention. This is a antiplatelet with some blood thinning effect, if you have any bleeding while taking aspirin including bloody or black bowel movements please hold this medication and seek medical reevaluation. You have been started on a second anti-platelet medicine plaavix (clopidogrel). Please take clopidogrel 75mg for three weeks (you will take this daily along with aspirin) then STOP clopidogrel after three weeks and take aspirin 81mg daily alone. You have been started on atorvastatin 40 mg for cholesterol control and secondary stroke prevention. This both lowers cholesterol and can help stabilize plaques on the blood vessel wall. This is a medication processed in the liver and requires 2-week follow-up labs to be performed by your primary care provider (LFTs in 2 weeks). Please call your PCP office to confirm an appointment has been made for follow-up, our case specialist are attempting to arrange an appointment for you as well. You have been prescribed a blood pressure medication called losartan. Your blood pressure was generally well-controlled while in the hospital but was occasionally above 160. Please check your blood pressure regularly at home and if your blood pressure is consistently above 029970 start taking losartan 25 mg daily for blood pressure control. This helps control blood pressure and secondary risk for things like heart attack and stroke. Due to low blood sugars overnight and waking up hypoglycemic your insulin has been adjusted. Please take your Lantus in the morning rather than the evening. You have also been dose reduced from 10 units to 7 units; in summary please take Lantus 7 units every morning and stop taking Lantus at night. An ultrasound of your heart was completed to check for certain rare defects that can contribute to stroke. This was completed but pending formal evaluation and read by her supervisor fabrication at time of your discharge. You are otherwise well and were discharged home to follow-up; please discuss the final results of this with your primary care physician at follow-up. If we notice any abnormal results when this is read we will attempt to contact you by phone. If you develop any new or worsening symptoms including fever, chills, sweats, chest pain, chest pressure, difficulty breathing, uncontrolled nausea/vomiting, rash, wheezing, passing out or nearly passing out, bleeding, black/bloody bowel movements, or other new or concerning symptoms please call your primary care physician, or call 911 for re-evaluation in the emergency department if you are very concerned. Pending Studies at Discharge: No Stand-Alone Forms: My [facility] [employer], Smoking Cessation, Medications to Prevent Stroke Medications and DC Order Prescriptions: New atorvastatin 40 mg tablet 40 mg PO DAILY Qty: 30 0RF losartan 25 mg tablet 25 mg PO DAILY Qty: 30 0RF Rx Instructions: Start if SBP consistently >140-160 as discussed during hospitalization clopidogrel 75 mg tablet 75 mg PO DAILY Qty: 30 3RF insulin glargine [Lantus U-100 Insulin] 100 unit/mL Solution 7 unit subcut QAM Qty: 10 0RF Continued aspirin 81 mg Tablet,Delayed Release (Dr/Ec) 81 mg PO DAILY Discharge Orders: Discharge Order (Routine); Ordered 08/14/23 Ordered By: Aquiles Rodriguez Admission Data Admit Date/Time: 08/13/23 13:28 Attending Provider: Aquiles Rodriguez Admit Provider: Aquiles Rodriguez Primary Care Provider: Suzanne Lester Other Providers: Aquiles Rodriguez Coding Level of Care Code 80241 INP/OBS DISCH >30 MIN Diagnoses Stroke-like symptoms R29.90 Diabetes mellitus, type 2 E11.9 Intermittent chest pain R07.9 TIA (transient ischemic attack) G45.9
[2023-08-14] MEDS ORDERED: STROKE PATIENT DISCHARGE STA (12:10)
--- NOTE | 2023-08-14 20:39 | Electrocardiogram Report ---
Test Reason : Blood Pressure : / mmHG Vent. Rate : 080 BPM Atrial Rate : 080 BPM P-R Int : 096 ms QRS Dur : 080 ms QT Int : 392 ms P-R-T Axes : 040 021 037 degrees QTc Int : 452 ms Sinus rhythm with short AK Otherwise normal ECG When compared with ECG of 06-JUN-2018 10:42, No significant change was found Confirmed by Genaro Petit ([id number]) on 08/14/2023 8:39:11 PM Referred By: REFERRED SELF Confirmed By:Genaro Petit
[2023-08-15 07:17] LABS: Estimated Average Glucose 197 mg/dl; Hemoglobin A1C 8.5 % (4.5-5.6)
--- NOTE | 2023-08-15 11:02 | XCELERA ---
[id number] [id number]
--- NOTE | 2023-08-16 10:27 | Pharmacy Report ---
Pharmacist Stroke Counseling - Date of Service August 16, 2023 - Scope: Pharmacy has been consulted to provide medication discharge counseling for this patient admitted with transient ischemic attack as per the Pharmacist Discharge Counseling for Stroke Patients Protocol. - Medications on Discharge: Home Medications Medication Instructions Recorded Confirmed aspirin 81 mg tablet,delayed 81 mg PO DAILY 08/13/23 08/13/23 release New Rx's Medication Instructions Recorded atorvastatin 40 mg tablet 40 mg PO DAILY #30 tabs 08/14/23 clopidogrel 75 mg tablet 75 mg PO DAILY #30 tabs 08/14/23 insulin glargine 100 unit/mL 7 unit (0.07 mL) subcut QAM #10 mL 08/14/23 subcutaneous solution (Lantus U-100 Insulin) losartan 25 mg tablet 25 mg PO DAILY #30 tabs 08/14/23 - Action: The above medications, specifically ones for stroke treatment/prophylaxis, have been reviewed in detail with the patient and/or patient underwriting service representative(s) prior to discharge. This includes indication, common adverse reactions, drug interactions, and medication administration. Medication counseling has been employed using the teach-back method to ensure understanding. - Outcome: The patient and/or patient underwriting service representative(s) have demonstrated understanding of the medications. Additional comments: * Successfully contacted patient this morning - she attempted to order picker medications yesterday, but the pharmacy was closed. She stated that she will be picking them up today. * Patient demonstrated good understanding of medication addition/changes. Aware of clopidogrel 3 week stop date. If she starts today, then her last dose will be on 09/05/2023. * Patient tracks blood pressure and blood glucose. Encouraged her to continue this and to present values to PCP at follow-up. * No obvious barriers to medication compliance noted Thank you for allowing pharmacy to be involved in the care of this patient. Please call [phone] with any additional questions
== END 2023-08-14 14:31 | disposition home or self-care (01) ==
LOC: ED 11:17 → EDINP 11:17 → 2W 16:55

== ENCOUNTER 2025-03-27 09:43 | Observation (INO) ==
--- NOTE | 2025-03-27 10:19 | Emergency Department Note ---
Impression & Plan Left sided numbness, Palpitations, Dizziness ED Provider Note NAME: WILFREDO CASTELLANO AGE: 79 SEX: F : 1945 ARRIVES VIA: Walk-In INFORMANT: [Patient] ED PROVIDER(S): [Ramiro Conley MD] Patient first seen by me at [id number] CHIEF COMPLAINT: Possible stroke HISTORY OF PRESENT ILLNESS: The patient is an 79-year-old female who has a history of TIA. She states that since yesterday, she has been having episodes of dizziness and some palpitations with a slight ache to the chest. The episodes last for several minutes at a time. She had 8 episodes yesterday. She took a nitroglycerin yesterday which may or may not have helped. The patient states that when the episodes occur, she does feel somewhat short of breath. There has been no syncope. Patient also took a nitroglycerin today for her symptoms. After she took the nitro, she became sweaty and nauseated. The patient was concerned because things seemed more serious today. The nausea and sweating is new. 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 PMHx/PSHx/Social Hx: See Below PHYSICAL EXAM: GENERAL: Patient is in no acute distress. HEENT: No acute trauma, normocephalic atraumatic, mucous membranes moist, no nasal congestion. NECK: No stridor, no adenopathy, no meningismus, trachea is midline. LUNGS: Clear to auscultation bilaterally, no wheeze, no rhonchi, breath sounds equal. HEART: Without murmurs gallops or rubs, regular rate and rhythm. ABDOMEN: Soft, nontender, no peritonitis. EXTREMITIES: No cyanosis, full range of motion of all the joints without pain or difficulty. NEUROLOGIC: Oriented x 3, no acute motor or sensory deficits, no focal weakness. Excellent historian, no speech slurring or facial droop. No extremity drift or cerebellar dysfunction. SKIN: No jaundice, no diaphoresis. DIFFERENTIAL DIAGNOSIS: Dysrhythmia, ND, anemia, electrolyte imbalance, TIA or CVA, among others. EMERGENCY DEPARTMENT PROCEDURES: MEDICAL DECISION MAKING: A stroke alert was called during the patient's ER stay. The patient had noted left sided face, upper left lateral leg and left finger tip numbness for around 40 minutes. Last known well was around 1130. There is no leukocytosis or concerning anemia. There is a normal platelet count. No coagulopathy. No renal failure or significant electrolyte abnormality. No concerning liver enzyme elevation. The patient appeared to be in a euthyroid state. ECG showed a sinus rhythm, no acute ST elevation. Cardiac enzyme testing x 1 was not consistent with acute cardiac injury. Urinalysis did not show findings of infection. Chest x-ray did not show pneumonia or CHF. Brain CT showed no acute bleed or mass effect. CTA of the head and neck was performed, there was no significant stenosis or clot. On exam, the patient had no focal neurologic findings. She was resting comfortably. No dysrhythmias seen on the aircraft general repair mechanic. During the patient's stay, she began developing some left face, left proximal leg and left hand numbness. A stroke alert was eventually called. The patient was seen by the [place] stroke teleneurologist, TNK is not indicated. Admission, further workup for potential stroke was recommended. The patient was ordered for oral aspirin and oral Plavix at the advice of the stroke neurologist. Patient is aware of the need for further workup in the hospital. At this point in time the cause for her presentation is not clear. I did speak with the patient and case management, the on-call hospitalist was consulted. Prior/Outside records/notes reviewed: None ECG per my interpretation: Indication was dizziness. The ECG shows a sinus rhythm with some sinus arrhythmia. The rate is 68. There is no ST elevation, no PVCs. The QTc is 427. Continuous Cardiac Monitoring per my interpretation: An order was placed for continuous cardiac monitoring. The monitor shows a rate of 69 with normal sinus rhythm. Imaging/x-ray results per my interpretation: Chest x-ray does not show mediastinal widening, pneumonia or pneumothorax. Chronic Medical/Social conditions affecting care: Advanced age. Care/Management discussed with: [place] telestroke neurology-Dr. Naqvi. Case management and the on-call hospitalist. Level of care consideration(s): After review of the information above and other included data: --I believe the patient requires escalation of care to admission Critical Care Note: I have personally spent 45 minutes of critical care time in the direct management of this patient. This includes bedside care, interpretation of diagnostic studies, and testing, discussion with consultants, patient, and family members, and other required patient management activities. This 45 minutes is in excess of all separately billable procedures. DISPOSITION: Admission Past Med/Surg History Problem List (Updated 03/27/25 @ 15:08 by Ramiro Conley MD) Dizziness (Acute) Palpitations (Acute) Left sided numbness (Acute) Intermittent chest pain Stroke-like symptoms Diabetes mellitus, type 2 TIA (transient ischemic attack) (Acute) Encounter for pre-operative examination Medical History Lyme disease pt currently being tx with Doxycycline for possible lyme Degenerative disc disease Osteoarthritis Surgical History Family history of pseudocholinesterase deficiency FATHER "ALLERGY TO SUCCS" History of carpal tunnel release LEFT History of cholecystectomy History of appendectomy History of tooth extraction History of tonsillectomy Family History Grandmother Family history of diabetes mellitus Social History Smoking Status: Never smoker Second Hand Exposure: No; Do You Dip or Chew Tobacco: No; Hx Alcohol Use: Yes Alcohol type: wine Hx Substance Use: No Preferred Language: Qatari Communication Ability: Effective [employer] Administrator Required: No Beliefs That Will Affect Care: Church Church Beliefs: EPISCOPAL Current Living Situation: Alone Feels Safe at Home: Yes Assistive Devices: Glasses Allergies Allergies Allergy/AdvReac Type Severity Reaction Status Date / Time No Known Allergies Allergy Unverified 03/27/25 14:08 Home Meds Home Medications Medication Instructions Recorded Confirmed aspirin 81 mg tablet,delayed 81 mg PO DAILY 08/13/23 03/27/25 release insulin glargine 100 unit/mL 5 unit subcut QAM 04/15/24 03/27/25 subcutaneous solution (Lantus U-100 Insulin) amlodipine 5 mg tablet 5 mg PO DAILY 03/27/25 03/27/25 ascorbic acid (vitamin C) 250 mg 250 mg PO DAILY 03/27/25 03/27/25 tablet (Vitamin C) atorvastatin 40 mg tablet 40 mg PO DAILY 03/27/25 03/27/25 cholecalciferol (vitamin D3) 50 50 mcg PO DAILY 03/27/25 03/27/25 mcg (2,000 unit) tablet (Vitamin D3) insulin lispro 100 unit/mL 6 unit subcut DIRECTED PRN 03/27/25 03/27/25 subcutaneous pen Hyperglycemia magnesium 200 mg tablet 200 mg PO DAILY 03/27/25 03/27/25 nitroglycerin 0.4 mg sublingual 0.4 mg sublingual DIRECTED PRN 03/27/25 03/27/25 tablet Chest Pain zinc gluconate 30 mg tablet 30 mg PO DAILY 03/27/25 03/27/25 Results & Data (ED) Vital Signs Vital Signs - 24 hr 03/27/25 09:44 03/27/25 10:25 03/27/25 11:00 Temperature 36.6 C Temperature Source Temporal Artery Scan Pulse Rate 75 69 Pulse Rate [Right] 75 Pulse Rhythm [Right] Regular Pulse Strength [Right] Normal Respiratory Rate 18 17 Respiratory Effort / Characteristics Non-Labored Spontaneous Non-Labored Spontaneous Respiratory Depth Normal Normal Respiratory Pattern Regular Blood Pressure 154/84 H Blood Pressure [Left Arm] 113/68 Blood Pressure Mean 107 Blood Pressure Mean [Left Arm] 83 Blood Pressure Position Sitting Blood Pressure Position [Left Arm] Semi-fowlers Pulse Oximetry 100 100 Oxygen Delivery Method Room Air Room Air Sepsis Recent Fever Within 48 Hours No Sepsis New/Unexplained Change in Mental Status N/A Sepsis Action Taken by Nursing No Action Required 03/27/25 11:07 03/27/25 11:28 03/27/25 12:45 Temperature Temperature Source Pulse Rate 75 Pulse Rate [Right] 82 Pulse Rhythm [Right] Pulse Strength [Right] Respiratory Rate 18 20 Respiratory Effort / Characteristics Respiratory Depth Respiratory Pattern Blood Pressure Blood Pressure [Left Arm] 140/74 Blood Pressure Mean Blood Pressure Mean [Left Arm] 96 Blood Pressure Position Blood Pressure Position [Left Arm] Pulse Oximetry 96 98 98 Oxygen Delivery Method Room Air Room Air Room Air Sepsis Recent Fever Within 48 Hours Sepsis New/Unexplained Change in Mental Status Sepsis Action Taken by Nursing 03/27/25 14:00 03/27/25 14:37 Temperature Temperature Source Pulse Rate 73 Pulse Rate [Right] 76 Pulse Rhythm [Right] Regular Pulse Strength [Right] Normal Respiratory Rate 17 Respiratory Effort / Characteristics Non-Labored Spontaneous Respiratory Depth Normal Respiratory Pattern Regular Blood Pressure Blood Pressure [Left Arm] 159/104 H Blood Pressure Mean Blood Pressure Mean [Left Arm] 122 Blood Pressure Position Blood Pressure Position [Left Arm] Sitting Pulse Oximetry 98 Oxygen Delivery Method Room Air Sepsis Recent Fever Within 48 Hours Sepsis New/Unexplained Change in Mental Status Sepsis Action Taken by Retirement Medications Current Medication List: was personally reviewed by me Laboratory Data Attestation: I reviewed the patient's lab results. 03/27/25 10:18 03/27/25 10:18 Lab Results 03/27/25 03/27/25 Range/Units 10:18 11:33 WBC 8.43 (4.8-10.8) K/ul RBC 5.21 (4.20-5.40) M/uL Hgb 14.4 (12.0-16.0) g/dl Hct 43.7 (37.0-47.0) % MCV 83.9 (80.0-100.0) fL MCH 27.6 (25.0-34.0) pg MCHC 33.0 (32.0-36.0) g/dL RDW Std Deviation 41.1 (36.4-46.3) fL RDW Coeff of Madhavi 13.5 (11.5-14.5) % Plt Count 245 (130-400) K/uL MPV 11.1 (9.4-12.4) fL Immature Gran % (Auto) 0.2 % Neut % (Auto) 69.9 % Lymph % (Auto) 20.4 % Gillespie % (Auto) 6.8 % Eos % (Auto) 1.9 % Baso % (Auto) 0.8 % Neut # (Auto) 5.89 (1.40-6.50) K/uL Lymph # (Auto) 1.72 (1.20-3.40) K/uL Gillespie # (Auto) 0.57 (0.11-0.59) K/uL Eos # (Auto) 0.16 (0.00-0.50) K/uL Baso # (Auto) 0.07 (0.00-0.20) K/uL Immature Gran # (Auto) 0.02 (0.01-0.20) K/uL PT Cancelled 10.2 INR Cancelled 0.9 APTT Cancelled 25 PTT Ratio Cancelled 0.9 Sodium 141 (136-145) mmol/L Potassium 3.9 (3.5-5.1) mmol/L Chloride 105 (98-107) mmol/L Carbon Dioxide 27 (21-32) mmol/L Anion Gap 9 (3-11) BUN 23 (6-23) mg/dl Creatinine 1.21 H (0.6-1.2) mg/dl Est Cr Clr Drug Dosing 36.4 ml/min eGFR 45.31 BUN/Creatinine Ratio 19.0 (10-20) Glucose 283 H (70-99(Fasting)) mg/dl Calcium 9.1 (8.6-10.3) mg/dl Magnesium 1.9 (1.7-2.4) mg/dl Total Bilirubin 0.7 (0.2-1.0) mg/dl AST 12 L (13-39) U/L ALT 13 (7-52) U/L Alkaline Phosphatase 114 H (34-104) U/L Troponin I High Sens 6.3 (0-14) pg/ml Total Protein 7.0 (6.0-8.3) gm/dl Albumin 4.0 (3.4-5.0) gm/dl Globulin 3.0 (2.5-4.0) gm/dl Albumin/Globulin Ratio 1.3 (0.9-2) Vitamin B12 370 (180-914) pg/ml TSH 0.576 (0.300-4.500) uIu/ml Urine Color Dark Yellow Urine Appearance Clear (Clear) Urine pH 5.0 (4.5-7.5) Ur Specific [place] 1.027 (1.000-1.030) Urine Protein Trace H (Negative) Urine Glucose (UA) 2+ H (Negative) Urine Ketones Trace H (Negative) Urine Blood Negative (Negative) Urine Nitrite Negative (Negative) Urine Bilirubin Negative (Negative) Urine Urobilinogen Negative (Negative) Ur Leukocyte Esterase Negative (Negative) Urine WBC (Auto) 0-5 (0-5) /hpf Urine RBC (Auto) 0-2 (0-2) /hpf U Hyaline Cast (Auto) 3-5 H (0-2) /lpf U Epithel Cells (Auto) 3-5 H (0-2) /hpf Urine Bacteria (Auto) None Seen (None Seen) Urine Comment Administered Medications Discontinued Medications Aspirin (Aspirin Chew 324 Mg) 324 mg PO NOW STA Stop: 03/27/25 13:48 Last Admin: 03/27/25 14:25 Dose: 324 mg Documented By: bindu Clopidogrel Bisulfate (Clopidogrel Bisulfate 300 Mg Tab) 300 mg PO NOW STA Stop: 03/27/25 13:23 Last Admin: 03/27/25 14:25 Dose: 300 mg Documented By: bindu Sodium Chloride (Nss) 500 mls @ 999 mls/hr IV .Q31M EDWARD Stop: 03/27/25 10:45 Last Infusion: 03/27/25 11:37 Dose: Infused Documented By: Admin: 03/27/25 10:59 Dose: 999 mls/hr Documented By: SAI Famotidine (Pepcid 20mg Iv Push) 20 mg in 5 mls @ 2.5 mls/min IV NOW STA Stop: 03/27/25 13:45 Last Admin: 03/27/25 14:25 Dose: 2.5 mls/min Documented By: bindu Ioversol (Optiray 320 125ml) 119 ml IV ONCE ONE Stop: 03/27/25 12:42 Last Admin: 03/27/25 12:42 Dose: 119 ml Documented By: SAVANNAH Imaging Data Radiologist's Impression: Chest X-Ray 03/27/25 10:03 XR chest 1V portable CLINICAL HISTORY: weakness COMPARISON STUDY: 08/13/2023 FINDINGS: Heart size and pulmonary vasculature are normal. No consolidation or pleural effusion. No pneumothorax. There is a possible hiatal hernia. IMPRESSION: No acute findings. ACT 112: Negative or not required by law. Electronically signed by: Nir Medley M.D. 03/27/2025 11:[address] 03/27/25 12:23 CT head/brain wo con CLINICAL HISTORY: left side numb. TECHNIQUE: Multiple axial CT images of the head were obtained without contrast. A dose lowering technique was utilized adhering to the principles of ALARA. CT DOSE: 979.33 mGy.cm COMPARISON: 08/13/2023 FINDINGS: There are stable globus pallidus calcifications. No intracranial hemorrhage seen. No mass effect, midline shift, or hydrocephalus. No skull fracture seen. Visualized paranasal sinuses and mastoid air cells are clear. IMPRESSION: No acute findings. ACT 112: Negative or not required by law. The above report was generated using voice recognition software. It may contain grammatical, syntax or spelling errors. Electronically signed by: Nir Medley M.D. 03/27/2025 12:50 PM Head CTA 03/27/25 12:23 CT angio neck with con, CT angio head w con CLINICAL HISTORY: left side numb. TECHNIQUE: Following the IV administration of 120 of Optiray, CT angiogram of the neck was performed from the aortic arch to the skull base. Images are reviewed in the axial, sagittal, and coronal planes. 3-D MIPS images are created and assessed. IV contrast was administered without complication. All measurements were calculated based on NASCET criteria. A dose lowering technique was utilized adhering to the principles of ALARA. CT DOSE: 979 COMPARISON STUDY: 08/13/2023 FINDINGS: There are mild carotid bulb calcifications and mild calcifications distally at the internal carotid arteries. Bilateral common and internal carotid arteries show no significant narrowing or occlusion. The vertebral arteries are diminutive beyond PICA, anatomic variant. No significant narrowing or occlusion seen at the vertebral arteries bilaterally. Basilar artery is diminutive but patent, stable. Anterior, middle, and posterior cerebral arteries are patent bilaterally. Cerebral venous sinuses opacify normally. IMPRESSION: No significant arterial narrowing or occlusion seen at the neck or brain. ACT 112: Negative or not required by law. The above report was generated using voice recognition software. It may contain grammatical, syntax or spelling errors. Electronically signed by: Nir Medley M.D. 03/27/2025 12:56 PM Neck CTA 03/27/25 12:23 CT angio neck with con, CT angio head w con CLINICAL HISTORY: left side numb. TECHNIQUE: Following the IV administration of 120 of Optiray, CT angiogram of the neck was performed from the aortic arch to the skull base. Images are reviewed in the axial, sagittal, and coronal planes. 3-D MIPS images are created and assessed. IV contrast was administered without complication. All measurements were calculated based on NASCET criteria. A dose lowering technique was utilized adhering to the principles of ALARA. CT DOSE: 979 COMPARISON STUDY: 08/13/2023 FINDINGS: There are mild carotid bulb calcifications and mild calcifications distally at the internal carotid arteries. Bilateral common and internal carotid arteries show no significant narrowing or occlusion. The vertebral arteries are diminutive beyond PICA, anatomic variant. No significant narrowing or occlusion seen at the vertebral arteries bilaterally. Basilar artery is diminutive but patent, stable. Anterior, middle, and posterior cerebral arteries are patent bilaterally. Cerebral venous sinuses opacify normally. IMPRESSION: No significant arterial narrowing or occlusion seen at the neck or brain. ACT 112: Negative or not required by law. The above report was generated using voice recognition software. It may contain grammatical, syntax or spelling errors. Electronically signed by: Nir Medley M.D. 03/27/2025 12:56 PM Discharge Plan Visit Data Chief Complaint: Stroke/CVA Symptoms Stated Complaint: DIZZY/SWEAT/NAUSEA - FEELS LIKE TIA ED Provider: Ramiro Conley Discharge Problem: Left sided numbness, Palpitations, Dizziness Patient Disposition: Admitted As Inpatient Condition: Fair Forms Stand Alone Forms: My [facility] [employer] Prescriptions Prescriptions: No Action aspirin 81 mg Tablet,Delayed Release (Dr/Ec) 81 mg PO DAILY insulin glargine [Lantus U-100 Insulin] 100 unit/mL solution 5 unit subcut QAM atorvastatin 40 mg tablet 40 mg PO DAILY amlodipine 5 mg tablet 5 mg PO DAILY zinc gluconate 30 mg Tablet 30 mg PO DAILY ascorbic acid (vitamin C) [Vitamin C] 250 mg Tablet 250 mg PO DAILY nitroglycerin 0.4 mg tablet, sublingual 0.4 mg sublingual DIRECTED PRN (Reason: Chest Pain) magnesium 200 mg Tablet 200 mg PO DAILY insulin lispro 100 unit/mL insulin pen 6 unit SUBCUT DIRECTED PRN (Reason: Hyperglycemia) Patient Comments: Only if I test and my sugar is over 400. cholecalciferol (vitamin D3) [Vitamin D3] 50 mcg (2,000 unit) Tablet 50 mcg PO DAILY Referrals Referrals: Suzanne Lester D.O. [Primary Care Provider] -
[2025-03-27 10:46] LABS: Hematocrit (blood only) 43.7 % (37.0-47.0); Hemoglobin 14.4 g/dl (12.0-16.0); Immature Granulocytes # (auto) 0.02 K/uL (0.01-0.20); Immature Granulocytes % (auto) 0.2 %; Mean Corpuscular Hemoglobin 27.6 pg (25.0-34.0); Mean Corpuscular Volume 83.9 fL (80.0-100.0); Platelet Count 245 K/uL (130-400); RDW Standard Deviation 41.1 fL (36.4-46.3); Red Blood Count 5.21 M/uL (4.20-5.40); White Blood Count 8.43 K/ul (4.8-10.8)
[2025-03-27 10:47] LABS: Appearance Urine Clear (Clear); Bacteria Urine Automated None Seen (None Seen); Glucose Urine UA 2+ (Negative); RBC Urine Automated 0-2 /hpf (0-2); WBC Urine Automated 0-5 /hpf (0-5)
[2025-03-27] MEDS: SODIUM CHLORIDE 0.9% 500 ML IV SCH (10:59)
[2025-03-27 11:06] LABS: Alanine Aminotransferase 13.0 U/L (7-52); Albumin Globulin Ratio 1.3 (0.9-2); Alkaline Phosphatase 114.0 U/L (34-104); Anion Gap 9.0 (3-11); Bilirubin,Total 0.7 mg/dl (0.2-1.0); Blood Urea Nitrogen 23.0 mg/dl (6-23); Calcium 9.1 mg/dl (8.6-10.3); Carbon Dioxide 27.0 mmol/L (21-32); Chloride 105.0 mmol/L (98-107); Creatinine Clr Calc Pharmacy 36.4 ml/min; Globulin 3.0 gm/dl (2.5-4.0); Glucose 283.0 mg/dl (70-99(Fasting)); Magnesium 1.9 mg/dl (1.7-2.4); Potassium 3.9 mmol/L (3.5-5.1); Sodium 141.0 mmol/L (136-145); Total Protein 7.0 gm/dl (6.0-8.3)
--- NOTE | 2025-03-27 11:19 | XRay Report ---
XR chest 1V portable CLINICAL HISTORY: weakness COMPARISON STUDY: 08/13/2023 FINDINGS: Heart size and pulmonary vasculature are normal. No consolidation or pleural effusion. No p neumothorax. There is a possible hiatal hernia. IMPRESSION: No acute findings. ACT 112: Negative or not required by law. Electronically signed by: Nir Medley M.D. 03/27/2025 11:18 AM
[2025-03-27 11:22] LABS: Thyroid Stimulating Hormone 0.576 uIu/ml (0.300-4.500)
[2025-03-27 12:13] LABS: INR 0.9 (0.9-1.1); Partial Thromboplastin Time 25 Seconds (21-31); Prothrombin Time 10.2 Seconds (9.0-12.0)
[2025-03-27] MEDS: OPTIRAY 320 125ml IV ONE (12:42)
--- NOTE | 2025-03-27 12:53 | CT Scan Report ---
CT head/brain wo con CLINICAL HISTORY: left side numb. TECHNIQUE: Multiple axial CT images of the head were obtained without contrast. A dose lowering tech nique was utilized adhering to the principles of ALARA. CT DOSE: 979.33 mGy.cm COMPARISON: 08/13/2023 FINDINGS: There are stable globus pallidus calcifications. No intracranial hemorrhage seen. No mass e ffect, midline shift, or hydrocephalus. No skull fracture seen. Visualized paranasal sinuses and mast oid air cells are clear. IMPRESSION: No acute findings. ACT 112: Negative or not required by law. The above report was generated using voice recognition software. It may contain grammatical, syntax o r spelling errors. Electronically signed by: Nir Medley M.D. 03/27/2025 12:50 PM
--- NOTE | 2025-03-27 12:58 | CT Scan Report ---
CT angio neck with con, CT angio head w con CLINICAL HISTORY: left side numb. TECHNIQUE: Following the IV administration of 120 of Optiray, CT angiogram of the neck was performed from the aortic arch to the skull base. Images are reviewed in the axial, sagittal, and coronal plane s. 3-D MIPS images are created and assessed. IV contrast was administered without complication. All m easurements were calculated based on NASCET criteria. A dose lowering technique was utilized adherin g to the principles of ALARA. CT DOSE: 979 COMPARISON STUDY: 08/13/2023 FINDINGS: There are mild carotid bulb calcifications and mild calcifications distally at the internal carotid arteries. Bilateral common and internal carotid arteries show no significant narrowing or oc clusion. The vertebral arteries are diminutive beyond PICA, anatomic variant. No significant narrowin g or occlusion seen at the vertebral arteries bilaterally. Basilar artery is diminutive but patent, s table. Anterior, middle, and posterior cerebral arteries are patent bilaterally. Cerebral venous sinu ses opacify normally. IMPRESSION: No significant arterial narrowing or occlusion seen at the neck or brain. ACT 112: Negative or not required by law. The above report was generated using voice recognition software. It may contain grammatical, syntax o r spelling errors. Electronically signed by: Nir Medley M.D. 03/27/2025 12:56 PM
--- NOTE | 2025-03-27 13:50 | History & Physical Report ---
Date of Service March 27, 2025 Assessment & Plan (1) Stroke-like symptoms: (2) Left sided numbness: (3) Dizziness: (4) Palpitations: (5) TIA (transient ischemic attack): (6) Intermittent chest pain: (7) Diabetes mellitus, type 2: (8) H/O: HTN (hypertension): (9) HLD (hyperlipidemia): Plan 79yo female with PMHx significant for TIA (on aspirin), HTN, HLD, DM II presented for episode of dizziness/palpitations with chest pressure starting 03/26 (but reports symptoms coming/going for weeks, recent event monitor several months ago but no results yet) but concerns for NEW diaphrosis today with nausea prompting coming to the ER. She reports her BSG was 200s when episode occurred, no recent hypoglycemia but poor DM control at baseline. Reports her BP was in 70s systolic when taken at home and did not take any of her usual medications prior to coming to the ER While in ER, reported associated numbness/tingling to her face w/ progression to fingertips on the left around 11:30 am reported in ER prompting stroke alert/telestroke evaluation in setting of missing her AM aspirin due to dizziness with sitting up in bed. Reportedly took a Nitro (as well as on 03/26) for suspected cardiac concerns. Troponin without elevation but EKG w/ SR w/ sinus arrhythmia. TSH wnl, no hx DVT/PE or leg swelling or recent travel. Stroke alert called, no TPA recs. Rec Aspirin, Plavix and stroke work-up as outlined below. Note JACEY w/ Cr 1.2 and appeared dry on exam as well. No urinary sx reported or recent fever/chills. Note prior admission in 2022 for TIA --> ECHO at that time w/ normal LV size, borderline concentric LVH, EF 50-60%, no wma. Normal RV size/function, mild AR. Est PASP >34mmHg. IVC not well visualized. Neg bubble study. No prior for comparison MRI Brain 07/2023"There are no foci of restricted diffusion to suggest acute infarct. No acute intracranial hemorrhage, midline shift or mass effect is present. Ventricular system is unremarkable. Basal cisterns are patent. There are no extra-axial collections. Flow-voids for the major intracranial vessels are present. No intracranial masses are identified on unenhanced exam. A few small white matter T2 hyperintense foci suggest minimal small vessel disease. 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 -->Had been maintained on baby aspirin daily since that time as discussed in HPI #Stroke like symptoms, numbness/tingling to face Ddx: TIA vs CVA vs arrhythmia, Lyme, complex Migraine GERD, esophageal spasm, uncontrolled DM, dehydration vs other Admit to medical w/ telemetry Continue ASA 81mg, Plavix 75mg daily -- plan DAPT x 21 days pending imaging MRI brain Permissive HTN Check orthostatic VS (dehydrated on exam) IVF for dehydration/slightly elevated Cr above prior baseline Continue amlodipine 5mg daily for AM, further recs pending Check ECHO Check Lyme, B12 Lipids, A1c w/ AM labs Monitor for arrhythmia. 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 Glu 200s on chemistry, 5u glargine x 1 ordered as missed AM and will continue 5u QAM w/ SSI while inpatient A1c w/ AM labs as above Pharmacy consult Consider DM educator vs endo f/u pending results Suspect benefit from CGM if insurance coverage allows for better ongoing monitoring (denies any lows, but sx w/ 120s) #HTN - reports improvement in BP since amlodipine increased to 5mg recently. BP 140s/70s on arrival but reported was 70s systolic at home following Nitro SL Prior fills for losartan 100mg daily but denies being on this at present time and defer for now but suspect benefit w/ underlying DM but will monitor/permissive HTN allows #HLD- continue lipitor 40mg. Further adjustment/increase pending lipid panel in AM #Hiatal Hernia - noted on CXRbut no issues reported Will order pepcid empirically for now, praful w/ DAPT above ?underlying esophageal spasm or other. Denied any issues w/ swallowing or reflux but monitor for any issues Is on zinc at baseline --? toxic. Can send level w/ AM labs but will hold for now ALP elevation -- no RUQ pain, ?2nd to hypotension. Check Vit D for completeness (is on supplementation baseline) DVT proph: Heparin SQ Dispo: admit medical w/ telemetry. Complete stroke work-up. See Dr Jensne note for any additional recs/attestation. History of Present Illness Chief Complaint: stroke like symptoms, dizziness, palpitations, nausea, diaphoresis Primary Care Provider: Sil Mancera - 79yo female with PMHx significant for TIA (on aspirin), HTN, HLD, DM II presented for episode of dizziness/palpitations with chest pressure starting yesterday. Reports symptoms coming/going for weeks, associated numbness/tingling to her face w/ progression to fingertips on the left around 11:30 am reported in ER prompting stroke alert/telestroke evaluation. Eval in A3 Patient alert/oriented, reports she woke up this morning and was dizzy when sitting up in bed and took a nitroglycerin for concerns for cardiac etiology with recent event monitor for "palpitations" however no prior hx of atrial fibrillation. TSH wnl/no hx hypothyroidism. Reports took her BP following this and was 77/60 and did not take any of her usual medications and came to the ER. She reports she took a nitro yesterday for similar symptoms but not sure if this helped or not but did not have the reported sweating/nausea yesterday when she took it like she did today which was concerning for her. Family in room, medications reviewed and patient reports baseline meds w/ ASA 81mg daily (no missed doses except this morning), lipitor 40mg, amlodipine 5mg (recent increased from 2.5mg and reports better BP control). Discussed fills for losartan, but patient denies taking this. Prior fills for diltiazem/metoprolol last year but not continued. She denies having more than one month rx, not sure why they were not continued. When asked why started, reports they were trialed for "palpitations" but were ineffective and suspect reason for not being continued. She notes her supervisor assembly room, Dr Beck, from [facility] had ordered event monitor for her this month and she sent it in about 2 months ago but had "episode" at the end of that before sending it in. She denies being told about afib at all but has not gotten/heard about results for such. Discussed any recent fever/chills, migraine hx - denies, occ headache/neck stiffness but not meningeal. [place] but no recent tick bites but discussed checking Lyme as well as completing stroke work up. If no arrhythmia found or acute CVA likely will rec DAPT x21 days but will await results. No hx reflux/medications or recent NSAIDs or GI bleeding. No vomiting or diarrhea. Is hungry/thirsty. Appears dry on exam. No leg edema, hx DVT or recent travel. She does check her BSGs at home and reports checking this morning during the "episode" and was 234 but did not give herself any insulin. Typically on 5u long acting daily in the morning w/ additional coverage if BSGs elevated w/ meals but typically runs in the 200s at home. When asked about recent A1c/control, reports she didn't remember the value because she didn't want to because it wasn't great. Full code if means temporary measures but does not "want to be a vegetable". Questions/concerns addressed at this time. Note prior admission for stroke-like symptoms in July 2023 - ECHO at that time w/ normal LV size, borderline concentric LVH, EF 50-60%, no wma. Normal RV size/function, mild AR. Est PASP >34mmHg. IVC not well visualized. Neg bubble study. No prior for comparison. MRI noted no foci of restricted diffusion to suggest acute infarct. No acute intracranial hemorrhage, midline shift or mass effect is present. Ventricular system is unremarkable. Basal cisterns are patent. There are no extra-axial collections. Flow-voids for the major intracranial vessels are present. No intracranial masses are identified on unenhanced exam. A few small white matter T2 hyperintense foci suggest minimal small vessel disease. 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 ER Course: BP 154/84 on arrival. Telestroke called. Provided ASA 324mg, Plavix 300mg x1. 500cc NSS. No TPA given duration sx/NIHSS 1 for possible numbness/tingling but nonfocal on exam. CT head, CTA head/neck unremarkable for acute CVA or stenosis/abn MRI ordered but not yet done Allergies Allergy/AdvReac Type Severity Reaction Status Date / Time No Known Allergies Allergy Unverified 03/27/25 14:08 Home Medications Medication Instructions Recorded Confirmed Type aspirin 81 mg tablet,delayed 81 mg PO DAILY 08/13/23 03/27/25 History release insulin glargine 100 unit/mL 5 unit subcut QAM 04/15/24 03/27/25 History subcutaneous solution (Lantus U-100 Insulin) amlodipine 5 mg tablet 5 mg PO DAILY 03/27/25 03/27/25 History ascorbic acid (vitamin C) 250 mg 250 mg PO DAILY 03/27/25 03/27/25 History tablet (Vitamin C) atorvastatin 40 mg tablet 40 mg PO DAILY 03/27/25 03/27/25 History cholecalciferol (vitamin D3) 50 50 mcg PO DAILY 03/27/25 03/27/25 History mcg (2,000 unit) tablet (Vitamin D3) insulin lispro 100 unit/mL 6 unit subcut DIRECTED PRN 03/27/25 03/27/25 History subcutaneous pen Hyperglycemia magnesium 200 mg tablet 200 mg PO DAILY 03/27/25 03/27/25 History nitroglycerin 0.4 mg sublingual 0.4 mg sublingual DIRECTED PRN 03/27/25 03/27/25 History tablet Chest Pain zinc gluconate 30 mg tablet 30 mg PO DAILY 03/27/25 03/27/25 History Past Med/Surg History Problem List (Updated 03/27/25 @ 16:15 by Alice Ghosh PA-C) HLD (hyperlipidemia) H/O: HTN (hypertension) Dizziness (Acute) Palpitations (Acute) Left sided numbness (Acute) Intermittent chest pain Stroke-like symptoms Diabetes mellitus, type 2 TIA (transient ischemic attack) (Acute) Encounter for pre-operative examination Medical History (Updated 03/27/25 @ 16:15 by Alice Ghosh PA-C) Degenerative disc disease Osteoarthritis Surgical History Family history of pseudocholinesterase deficiency FATHER "ALLERGY TO SUCCS" History of carpal tunnel release LEFT History of cholecystectomy History of appendectomy History of tooth extraction History of tonsillectomy Family History Grandmother Family history of diabetes mellitus Social History Smoking Status: Never smoker Second Hand Exposure: No; Do You Dip or Chew Tobacco: No; Hx Alcohol Use: Yes Alcohol type: wine Hx Substance Use: No Preferred Language: Ivorian Communication Ability: Effective Fbi Profiler Required: No Beliefs That Will Affect Care: Buddhism Buddhism Beliefs: PENTECOSTALISM Current Living Situation: Alone Feels Safe at Home: Yes Assistive Devices: Glasses Physical Exam Physical Exam: General: 79yo female resting in bed, family/friends in room, NAD HEENT: head atraumatic, normocephalic, mm DRY, trachea midline Resp: even/unlabored, no wheezing/rales, on room air CV: RRR, faint systolic murmur, no rub/gallop, no pitting edema, pulses present, calves nontender, no edema GI: +BS, soft/NT : no chowdhury MSK/Neuro: not confused, no facial droop/slurred speech. finger opposition intact, no focal loss of strength, moves all extremities, able to follow commands. 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 but sensation to pressure intact Psych: AOx3, cooperative with exam Results & Data Results & Data Vital Signs (Past 12 Hours) Vital Signs Temp Pulse Pulse Resp BP BP Pulse Ox 03/27/25 12:45 82 20 140/74 98 03/27/25 11:28 98 03/27/25 11:07 75 18 96 03/27/25 11:00 75 17 113/68 100 03/27/25 10:25 69 03/27/25 09:44 36.6 C 75 18 154/84 H 100 O2 Del Method 03/27/25 12:45 Room Air 03/27/25 11:28 Room Air 03/27/25 11:07 Room Air 03/27/25 11:00 Room Air 03/27/25 10:25 03/27/25 09:44 Room Air Laboratory Results 03/27/25 03/27/25 Range/Units 11:33 10:18 WBC 8.43 (4.8-10.8) K/ul RBC 5.21 (4.20-5.40) M/uL Hgb 14.4 (12.0-16.0) g/dl Hct 43.7 (37.0-47.0) % MCV 83.9 (80.0-100.0) fL MCH 27.6 (25.0-34.0) pg MCHC 33.0 (32.0-36.0) g/dL RDW Std Deviation 41.1 (36.4-46.3) fL RDW Coeff of Madhavi 13.5 (11.5-14.5) % Plt Count 245 (130-400) K/uL MPV 11.1 (9.4-12.4) fL Immature Gran % (Auto) 0.2 % Neut % (Auto) 69.9 % Lymph % (Auto) 20.4 % [place] % (Auto) 6.8 % Eos % (Auto) 1.9 % Baso % (Auto) 0.8 % Neut # (Auto) 5.89 (1.40-6.50) K/uL Lymph # (Auto) 1.72 (1.20-3.40) K/uL [place] # (Auto) 0.57 (0.11-0.59) K/uL Eos # (Auto) 0.16 (0.00-0.50) K/uL Baso # (Auto) 0.07 (0.00-0.20) K/uL Immature Gran # (Auto) 0.02 (0.01-0.20) K/uL PT 10.2 Cancelled INR 0.9 Cancelled APTT 25 Cancelled PTT Ratio 0.9 Cancelled Sodium 141 (136-145) mmol/L Potassium 3.9 (3.5-5.1) mmol/L Chloride 105 (98-107) mmol/L Carbon Dioxide 27 (21-32) mmol/L Anion Gap 9 (3-11) BUN 23 (6-23) mg/dl Creatinine 1.21 H (0.6-1.2) mg/dl Est Cr Clr Drug Dosing 36.4 ml/min eGFR 45.31 BUN/Creatinine Ratio 19.0 (10-20) Glucose 283 H (70-99(Fasting)) mg/dl Calcium 9.1 (8.6-10.3) mg/dl Magnesium 1.9 (1.7-2.4) mg/dl Total Bilirubin 0.7 (0.2-1.0) mg/dl AST 12 L (13-39) U/L ALT 13 (7-52) U/L Alkaline Phosphatase 114 H (34-104) U/L Troponin I High Sens 6.3 (0-14) pg/ml Total Protein 7.0 (6.0-8.3) gm/dl Albumin 4.0 (3.4-5.0) gm/dl Globulin 3.0 (2.5-4.0) gm/dl Albumin/Globulin Ratio 1.3 (0.9-2) Vitamin B12 370 (180-914) pg/ml 25-OH Vitamin D Total Pending TSH 0.576 (0.300-4.500) uIu/ml Urine Color Dark Yellow Urine Appearance Clear (Clear) Urine pH 5.0 (4.5-7.5) Ur Specific [place] 1.027 (1.000-1.030) Urine Protein Trace H (Negative) Urine Glucose (UA) 2+ H (Negative) Urine Ketones Trace H (Negative) Urine Blood Negative (Negative) Urine Nitrite Negative (Negative) Urine Bilirubin Negative (Negative) Urine Urobilinogen Negative (Negative) Ur Leukocyte Esterase Negative (Negative) Urine WBC (Auto) 0-5 (0-5) /hpf Urine RBC (Auto) 0-2 (0-2) /hpf U Hyaline Cast (Auto) 3-5 H (0-2) /lpf U Epithel Cells (Auto) 3-5 H (0-2) /hpf Urine Bacteria (Auto) None Seen (None Seen) Urine Comment Lyme Disease Screen Negative (Negative) Diagnostic Findings Chest X-Ray 03/27/25 10:03 XR chest 1V portable CLINICAL HISTORY: weakness COMPARISON STUDY: 08/13/2023 FINDINGS: Heart size and pulmonary vasculature are normal. No consolidation or pleural effusion. No pneumothorax. There is a possible hiatal hernia. IMPRESSION: No acute findings. ACT 112: Negative or not required by law. Electronically signed by: Nir Medley M.D. 03/27/2025 11:[address] 03/27/25 12:23 CT head/brain wo con CLINICAL HISTORY: left side numb. TECHNIQUE: Multiple axial CT images of the head were obtained without contrast. A dose lowering technique was utilized adhering to the principles of ALARA. CT DOSE: 979.33 mGy.cm COMPARISON: 08/13/2023 FINDINGS: There are stable globus pallidus calcifications. No intracranial hemorrhage seen. No mass effect, midline shift, or hydrocephalus. No skull fra cture seen. Visualized paranasal sinuses and mastoid air cells are clear. IMPRESSION: No acute findings. ACT 112: Negative or not required by law. The above report was generated using voice recognition software. It may contain grammatical, syntax or spelling errors. Electronically signed by: Nir Medley M.D. 03/27/2025 12:50 PM Head CTA 03/27/25 12:23 CT angio neck with con, CT angio head w con CLINICAL HISTORY: left side numb. TECHNIQUE: Following the IV administration of 120 of Optiray, CT angiogram of the neck was performed from the aortic arch to the skull base. Images are reviewed in the axial, sagittal, and coronal planes. 3-D MIPS images are created and assessed. IV contrast was administered without complication. All measuremen ts were calculated based on NASCET criteria. A dose lowering technique was utilized adhering to the principles of ALARA. CT DOSE: 979 COMPARISON STUDY: 08/13/2023 FINDINGS: There are mild carotid bulb calcifications and mild calcifications distally at the internal carotid arteries. Bilateral common and internal carotid arteries show no significant narrowing or occlusion. The vertebral arteries are diminutive beyond PICA, anatomic variant. No significant narrowing or occlusion seen at the vertebral arteries bilaterally. Basilar artery is diminutive but patent, stable. Anterior, middle, and posterior cerebral arteries are patent bilaterally. Cerebral venous sinuses opacify normally. IMPRESSION: No significant arterial narrowing or occlusion seen at the neck or brain. ACT 112: Negative or not required by law. The above report was generated using voice recognition software. It may contain grammatical, syntax or spelling errors. Electronically signed by: Nir Medley M.D. 03/27/2025 12:56 PM Neck CTA 03/27/25 12:23 CT angio neck with con, CT angio head w con CLINICAL HISTORY: left side numb. TECHNIQUE: Following the IV administration of 120 of Optiray, CT angiogram of the neck was performed from the aortic arch to the skull base. Images are reviewed in the axial, sagittal, and coronal planes. 3-D MIPS images are created and assessed. IV contrast was administered without complication. All measurements were calculated based on NASCET criteria. A dose lowering technique was utilized adhering to the principles of ALARA. CT DOSE: 979 COMPARISON STUDY: 08/13/2023 FINDINGS: There are mild carotid bulb calcifications and mild calcifications distally at the internal carotid arteries. Bilateral common and internal carotid arteries show no significant narrowing or occlusion. The vertebral arteries are diminutive beyond PICA, anatomic variant. No significant narrowing or occlusion seen at the vertebral arteries bilaterally. Basilar artery is diminutive but patent, stable. Anterior, middle, and posterior cerebral arteries are patent bilaterally. Cerebral venous sinuses opacify normally. IMPRESSION: No significant arterial narrowing or occlusion seen at the neck or brain. ACT 112: Negative or not required by law. The above report was generated using voice recognition software. It may contain grammatical, syntax or spelling errors. Electronically signed by: Nir Medley M.D. 03/27/2025 12:56 PM ECG Additional Comments: EKG SR w/ PAC, 68bpm. No significant change from EKG 2023. QTC 427ms PG Care Time/CCT Total # of Minutes Spent Total Time Spent with Patient: Total time spent is greater than 50% in coordination of care (as documented) at patient's floor/unit and/or counseling patient: Coding Level of Care Code 08629 INT INP/OBS CARE 3/75MIN Diagnoses Stroke-like symptoms R29.90 Left sided numbness R20.0 Dizziness R42 Palpitations R00.2 TIA (transient ischemic attack) G45.9 Intermittent chest pain R07.9 Diabetes mellitus, type 2 E11.9 H/O: HTN (hypertension) Z86.79 HLD (hyperlipidemia) E78.5
[2025-03-27] MEDS: CLOPIDOGREL BISULFATE 300 MG TAB PO STA (14:25)
[2025-03-27] MEDS: FAMOTIDINE 20MG IV PUSH 20 MG/5 ML SYR IV STA (14:25)
[2025-03-27] MEDS: ASPIRIN CHEW 324 MG PO STA (14:25)
[2025-03-27] MEDS: SODIUM CHLORIDE 0.9% 1,000 ML IV SCH (15:50)
--- NOTE | 2025-03-27 16:23 | XCELERA ---
[id number]
--- NOTE | 2025-03-27 16:24 | Electrocardiogram Report ---
Test Reason : Blood Pressure : */* mmHG Vent. Rate : 68 BPM Atrial Rate : 68 BPM P-R Int : 126 ms QRS Dur : 80 ms QT Int : 402 ms P-R-T Axes : 72 13 33 degrees QTcB Int : 427 ms Sinus rhythm with PAC Otherwise normal ECG When compared with ECG of 15-Apr-2024 10:28, No significant change was found Confirmed by Poli Ortega ([id number]) on 03/27/2025 4:23:55 PM Referred By: REFERRED SELF Confirmed By: Poli Ortega
[2025-03-27] MEDS ORDERED: PHARMACY GLYCEMIC MGMT CONSULT PRN (17:18)
[2025-03-27] MEDS ORDERED: GLUCOSE 40% GEL 15 GM TUBE PO PRN (17:18)
[2025-03-27] MEDS ORDERED: GLUCAGON FOR INJ 1 MG VIAL SQ PRN (17:18)
[2025-03-27] MEDS ORDERED: NITROGLYCERIN SL 0.4 MG/TAB TAB SL PRN (17:18)
[2025-03-27] MEDS ORDERED: ONDANSETRON INJ 2 MG/ML 2 ML VIAL IV PRN (17:18)
[2025-03-27] MEDS ORDERED: ACETAMINOPHEN 325 MG TAB PO PRN (17:18)
[2025-03-27] MEDS ORDERED: GLUCOSE 10 TAB/TUBE PO PRN (17:18)
[2025-03-27] MEDS ORDERED: CARBOHYDRATES FOR HYPOGLYCEMIA PO PRN (17:18)
[2025-03-27] MEDS ORDERED: DEXTROSE 50% 50 ML SYRINGE IV PRN (17:18)
[2025-03-27] MEDS: GADOBUTROL 65ML VIAL IV ONE (17:40)
--- NOTE | 2025-03-27 18:15 | Magnetic Resonance Report ---
MRI of the brain performed with and without IV contrast History: Comparison: Technique: Multiplanar T1 weighted, axial T2/FLAIR, and susceptibility images were obtained without intravenous contrast. Following intravenous gadolinium based contrast administration, axial T2 weighted, diffusion, and T1-weighted images were obtained. Findings: No evidence for intracranial mass lesion, mass-effect, midline shift, or abnormal extra-axial fluid collection. Postcontrast images demonstrate no abnormal intracranial enhancement. The orbits are grossly unremarkable. The ventricles and sulci are within normal limits for age. No abnormally reduced diffusion or evidence for acute infarct. Normal intravascular flow voids. Impression: Normal brain MRI with and without IV contrast Electronically signed by Poli Lester 03-27-2025 6:15 PM
[2025-03-27] MEDS: FAMOTIDINE 20MG IV PUSH 20 MG/5 ML SYR IV SCH (18:25)
[2025-03-27] MEDS: INSULIN ASPART PER UNIT CHARGE SC SCH (18:28)
[2025-03-27] MEDS: LANTUS PER UNIT CHARGE SQ ONE (18:32)
[2025-03-27] MEDS: HEPARIN SOD 5,000 UNIT/0.5 ML VIAL SQ SCH (20:20)
[2025-03-28] MEDS: MAGNESIUM SULFATE / D5W 1 GM/100 ML BAG IV ONE (01:32)
[2025-03-28] MEDS: METOPROLOL TARTRATE 25 MG TAB PO ONE (03:23)
[2025-03-28 07:30] LABS: Hematocrit (blood only) 38.8 % (37.0-47.0); Hemoglobin 13.2 g/dl (12.0-16.0); Immature Granulocytes # (auto) 0.01 K/uL (0.01-0.20); Immature Granulocytes % (auto) 0.2 %; Mean Corpuscular Hemoglobin 28.1 pg (25.0-34.0); Mean Corpuscular Volume 82.6 fL (80.0-100.0); Platelet Count 233 K/uL (130-400); RDW Standard Deviation 40.8 fL (36.4-46.3); Red Blood Count 4.70 M/uL (4.20-5.40); White Blood Count 5.66 K/ul (4.8-10.8)
[2025-03-28 07:43] VITALS: BP 152/72; PULSE 62; RESP 16; TEMP 97.7; O2SAT 97
[2025-03-28 07:46] LABS: Alanine Aminotransferase 10.0 U/L (7-52); Albumin Globulin Ratio 1.7 (0.9-2); Alkaline Phosphatase 95.0 U/L (34-104); Anion Gap 7.0 (3-11); Bilirubin,Total 0.6 mg/dl (0.2-1.0); Blood Urea Nitrogen 16.0 mg/dl (6-23); Calcium 8.4 mg/dl (8.6-10.3); Carbon Dioxide 24.0 mmol/L (21-32); Chloride 111.0 mmol/L (98-107); Cholesterol 126.0 mg/dl (0-200); Creatinine Clr Calc Pharmacy 39.7 ml/min; Globulin 2.1 gm/dl (2.5-4.0); Glucose 182.0 mg/dl (70-99(Fasting)); HDL Cholesterol 55.0 mg/dl; Magnesium 2.1 mg/dl (1.7-2.4); Potassium 3.7 mmol/L (3.5-5.1); Sodium 142.0 mmol/L (136-145); Total Protein 5.7 gm/dl (6.0-8.3); Triglycerides 74.0 mg/dl (0-150)
[2025-03-28] MEDS: CLOPIDOGREL BISULFATE 75 MG TAB PO SCH (09:05)
[2025-03-28] MEDS: ASPIRIN 81 MG ECTAB PO SCH (09:05)
[2025-03-28] MEDS: CHOLECALCIFEROL 25 MCG (1000 UNITS) TAB PO SCH (09:05)
[2025-03-28] MEDS: ASCORBIC ACID 500 MG TAB PO SCH (09:05)
[2025-03-28] MEDS: ATORVASTATIN 40 MG TAB PO SCH (09:05)
[2025-03-28] MEDS: LANTUS PER UNIT CHARGE SQ SCH (09:05)
[2025-03-28 09:23] LABS: Hemoglobin A1C 10.7 % (4.5-5.6)
--- NOTE | 2025-03-28 12:47 | Discharge Summary ---
Discharge Summary Date of Service March 28, 2025 Principal Dx & Hospital Course #1 = Principal Diagnosis (1) Stroke-like symptoms: (2) Left sided numbness: (3) Dizziness: (4) Palpitations: (5) TIA (transient ischemic attack): (6) Intermittent chest pain: (7) Diabetes mellitus, type 2: (8) H/O: HTN (hypertension): (9) HLD (hyperlipidemia): Plan 79yo female with PMHx significant for TIA (on aspirin), HTN, HLD, DM II prese nted for episode of dizziness/palpitations with chest pressure starting 03/26 (but reports symptoms coming/going for weeks, recent event monitor several months ago but no results yet) but concerns for NEW diaphrosis today with nausea prompting coming to the ER. She reports her BSG was 200s when episode occurred, no recent hypoglycemia but poor DM control at baseline. Reports her BP was in 70s systolic when taken at home and did not take any of her usual medications prior to coming to the ER While in ER, reported associated numbness/tingling to her face w/ progression to fingertips on the left around 11:30 am reported in ER prompting stroke alert/telestroke evaluation in setting of missing her AM aspirin due to dizziness with sitting up in bed. Reportedly took a Nitro (as well as on 03/26) for suspected cardiac concerns. Troponin without elevation but EKG w/ SR w/ sinus arrhythmia. TSH wnl, no hx DVT/PE or leg swelling or recent travel. Stroke alert called, no TPA recs. Rec Aspirin, Plavix and stroke work-up as outlined below. Note JACEY w/ Cr 1.2 and appeared dry on exam as well. No urinary sx reported or recent fever/chills. Note prior admission in 2022 for TIA --> ECHO at that time w/ normal LV size, borderline concentric LVH, EF 50-60%, no wma. Normal RV size/function, mild AR. Est PASP >34mmHg. IVC not well visualized. Neg bubble study. No prior for comparison MRI Brain 07/2023"There are no foci of restricted diffusion to suggest acute infarct. No acute intracranial hemorrhage, midline shift or mass effect is present. Ventricular system is unremarkable. Basal cisterns are patent. There are no extra-axial collections. Flow-voids for the major intracranial vessels are present. No intracranial masses are identified on unenhanced exam. A few small white matter T2 hyperintense foci suggest minimal small vessel disease. 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 -->Had been maintained on baby aspirin daily since that time as discussed in HPI #Stroke like symptoms, numbness/tingling to face Ddx: TIA vs CVA vs arrhythmia, Lyme, complex Migraine GERD, esophageal spasm, uncontrolled DM, dehydration vs other Admit to medical w/ telemetry Initially treated with ASA 81mg, Plavix 75mg daily However symptoms appear more like paresthesias then an actual stroke or TIA MRI brain negative #DM II - reports "not great" control at baseline but on 5u long acting QAM w/ prn for BSG readings w/ meals. Glu 200s on chemistry, 5u glargine x 1 ordered as missed AM and will continue 5u QAM w/ SSI while inpatient A1c w/ AM labs as above Pharmacy consulted #HTN - reports improvement in BP since amlodipine increased to 5mg recently. BP 140s/70s on arrival but reported was 70s systolic at home following Nitro SL Prior fills for losartan 100mg daily but denies being on this at present time; will defer to PCP #SVT Patient with an episdoe of an SVT, will place on metoprolol #HLD- continue lipitor 40mg. #Hiatal Hernia - noted on CXRbut no issues reported Will order pepcid empirically for now, praful w/ DAPT above ?underlying esophageal spasm or other. Denied any issues w/ swallowing or reflux but monitor for any issues Admission HPI Per Admitting Provider Sil Yanez - 79yo female with PMHx significant for TIA (on aspirin), HTN, HLD, DM II presented for episode of dizziness/palpitations with chest pressure starting yesterday. Reports symptoms coming/going for weeks, associated numbness/tingling to her face w/ progression to fingertips on the left around 11:30 am reported in ER prompting stroke alert/telestroke evaluation. Eval in A3 Patient alert/oriented, reports she woke up this morning and was dizzy when sitting up in bed and took a nitroglycerin for concerns for cardiac etiology with recent event monitor for "palpitations" however no prior hx of atrial fibrillation. TSH wnl/no hx hypothyroidism. Reports took her BP following this and was 77/60 and did not take any of her usual medications and came to the ER. She reports she took a nitro yesterday for similar symptoms but not sure if this helped or not but did not have the reported sweating/nausea yesterday when she took it like she did today which was concerning for her. Family in room, medications reviewed and patient reports baseline meds w/ ASA 81mg daily (no missed doses except this morning), lipitor 40mg, amlodipine 5mg (recent increased from 2.5mg and reports better BP control). Discussed fills for losartan, but patient denies taking this. Prior fills for diltiazem/metoprolol last year but not continued. She denies having more than one month rx, not sure why they were not continued. When asked why started, reports they were trialed for "palpitations" but were ineffective and suspect reason for not being continued. 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 She denies being told about afib at all but has not gotten/heard about results for such. Discussed any recent fever/chills, migraine hx - denies, occ headache/neck stiffness but not meningeal. [place] but no recent tick bites but discussed checking Lyme as well as completing stroke work up. If no arrhythmia found or acute CVA likely will rec DAPT x21 days but will await results. No hx reflux/medications or recent NSAIDs or GI bleeding. No vomiting or diarrhea. Is hungry/thirsty. Appears dry on exam. No leg edema, hx DVT or recent travel. She does check her BSGs at home and reports checking this morning during the "episode" and was 234 but did not give herself any insulin. Typically on 5u long acting daily in the morning w/ additional coverage if BSGs elevated w/ meals but typically runs in the 200s at home. When asked about recent A1c/control, reports she didn't remember the value because she didn't want to because it wasn't great. Full code if means temporary measures but does not "want to be a vegetable". Questions/concerns addressed at this time. Note prior admission for stroke-like symptoms in July 2023 - ECHO at that time w/ normal LV size, borderline concentric LVH, EF 50-60%, no wma. Normal RV size/function, mild AR. Est PASP >34mmHg. IVC not well visualized. Neg bubble study. No prior for comparison. MRI noted no foci of restricted diffusion to suggest acute infarct. No acute intracranial hemorrhage, midline shift or mass effect is present. Ventricular system is unremarkable. Basal cisterns are patent. There are no extra-axial collections. Flow-voids for the major intracranial vessels are present. No intracranial masses are identified on unenhanced exam. A few small white matter T2 hyperintense foci suggest minimal small vessel disease. 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 ER Course: BP 154/84 on arrival. Telestroke called. Provided ASA 324mg, Plavix 300mg x1. 500cc NSS. No TPA given duration sx/NIHSS 1 for possible numbness/tingling but nonfocal on exam. CT head, CTA head/neck unremarkable for acute CVA or stenosis/abn MRI ordered but not yet done Discharge Exam Constitutional WD/WN, vitals as above Neck trachea midline, no thyromegaly Respiratory normal respiratory effort, lungs clear to auscultation Cardiovascular RRR, no murmur, no edema Neurologic PERRL, EOMI, accommodation nl, no face palsy, no dysarthria Discharge Plan Discharge Items Patient Disposition: Home - Self-Care Reason For Visit: STROKE LIKE SYMPTOMS, FACIAL NUMBNESS/TINGLING, PA Discharge Diagnosis: stroke like symptoms. Condition on Discharge: Fair Activity: Resume your previous activity Non-emergency contact: Primary Care Provider Call non-emergency contact if: you have any medication questions Follow-up/Referrals: Suzanne Lester D.O. [Primary Care Provider] - Diet: Regular Addtl Attending Provider Instructions: Recommend close followup with your PCP in 1-2 weeks. Will give metoprolol to help limit fast heart rates. Pending Studies at Discharge: No Stand-Alone Forms: My [employer], Smoking Cessation Medications and DC Order Prescriptions: New metoprolol succinate 25 mg tablet extended release 24 hr 25 mg PO HS Qty: 30 0RF Continued aspirin 81 mg Tablet,Delayed Release (Dr/Ec) 81 mg PO DAILY insulin glargine [Lantus U-100 Insulin] 100 unit/mL solution 5 unit subcut QAM atorvastatin 40 mg tablet 40 mg PO DAILY amlodipine 5 mg tablet 5 mg PO DAILY zinc gluconate 30 mg Tablet 30 mg PO DAILY ascorbic acid (vitamin C) [Vitamin C] 250 mg Tablet 250 mg PO DAILY nitroglycerin 0.4 mg tablet, sublingual 0.4 mg sublingual DIRECTED PRN (Reason: Chest Pain) magnesium 200 mg Tablet 200 mg PO DAILY insulin lispro 100 unit/mL insulin pen 6 unit SUBCUT DIRECTED PRN (Reason: Hyperglycemia) Patient Comments: Only if I test and my sugar is over 400. cholecalciferol (vitamin D3) [Vitamin D3] 50 mcg (2,000 unit) Tablet 50 mcg PO DAILY Discharge Orders: Discharge Order (Routine); Ordered 03/28/25 Ordered By: Paul Rahman/Other Patient Handouts: Managing Diabetes: The A1C Test Admission Data Admit Date/Time: 03/27/25 14:32 Attending Provider: Paul Jensen Admit Provider: Paul Jensen Primary Care Provider: Suzanne Lester Other Providers: Poli Ortega Other Interventions: Discharge Summary Assessment (RN) Last Done: 03/28/25 13:15 Hospital Stay Data Consultations 03/27/25 13:27 ED Decision to Admit Stat 03/27/25 17:18 HIM [Consult Health Information Management] Routine Diagnostic Imagining Performed 03/27/25 12:23 CT angio head w con Stat CT angio neck with con Stat CT head/brain wo con Stat 03/27/25 13:40 MRI Brain [MR brain wo/w con] Routine Pending Results Patient Have Any Pending Studies at Discharge: No Discharge Instructions Given to Patient (Per Discharging Provider) Recommend close followup with your PCP in 1-2 weeks. Will give metoprolol to help limit fast heart rates. Total Time Total Time Spent Total Time Spent (In Minutes): 32 Coding Level of Care Code 06535 INP/OBS DISCH >30 MIN Diagnoses Stroke-like symptoms R29.90 Left sided numbness R20.0 Dizziness R42 Palpitations R00.2 TIA (transient ischemic attack) G45.9 Intermittent chest pain R07.9 Diabetes mellitus, type 2 E11.9 H/O: HTN (hypertension) Z86.79 HLD (hyperlipidemia) E78.5
--- NOTE | 2025-03-28 14:12 | Cardiology Consultation ---
Date of Consultation March 28, 2025 Assessment & Plan (1) SVT (supraventricular tachycardia): Plan 1. SVT: She has a well-documented SVT. 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 Slightly prolonged RP interval, but this is still the likely mechanism. Less likely would be an ectopic atrial arrhythmia. We discussed the benign nature of these rhythms in general. An otherwise healthy individual these can be treated according to symptoms. No clear precipitant and they are commonly random. Episodes are generally brief and well-tolerated. We did discuss medical therapy. Since she has been on diltiazem in the past without significant effect. We could try beta-blockade and monitor the effect. We did discuss catheter-based therapy as well and this was my recommendation for resolution of her problem. I do not think that her SVT is related to her neurologic symptoms. They seem to be distinct from each other in time. SVT is generally not associated with thromboembolic phenomenon and there is no indication for anticoagulation. History of Present Illness Reason for Consultation: SVT Requesting Physician: Mikey Attending Physician: Paul Jensen History of Present Illness The patient is an 79-year-old woman without a known history of cardiac disease who was admitted to the hospital for neurologic symptoms. The patient states that she has been having a "tingling" sensation in her scalp and head. This can also be associated with some word finding difficulties and facial numbness. She states that these episodes are relatively infrequent but have been happening for some time. She is currently undergoing an outpatient evaluation. There was some concern that she was having some neurologic events and she was admitted for observation. Over the course of the evening she was also noted to have episodes of SVT. Patient states that she has had some episodes of rapid heartbeat at times. These tend to occur randomly. She can have several episodes on 1 day and no episodes on other days. The episode themselves generally last a few minutes and resolve spontaneously. Very few associated symptoms. On 1 occasion she did have some mild dizziness and presyncopal type symptoms. Curiously, not generally associated with her other neurologic symptoms. She reports undergoing an outpatient evaluation in the past for heart disease. This seems to have included stress testing and outpatient EKG monitoring. She was not felt to have any significant abnormalities by her report. In general she is an active individual. She take care of a very large property. She is able to do outdoor work and other labor without significant limitation. When ascending a hill sometimes she will have some mild shortness of breath. No exertional chest pain. Allergies Allergy/AdvReac Type Severity Reaction Status Date / Time No Known Allergies Allergy Unverified 03/27/25 14:08 Home Medications Medication Instructions Recorded Confirmed Type aspirin 81 mg tablet,delayed 81 mg PO DAILY 08/13/23 03/27/25 History release insulin glargine 100 unit/mL 5 unit subcut QAM 04/15/24 03/27/25 History subcutaneous solution (Lantus U-100 Insulin) amlodipine 5 mg tablet 5 mg PO DAILY 03/27/25 03/27/25 History ascorbic acid (vitamin C) 250 mg 250 mg PO DAILY 03/27/25 03/27/25 History tablet (Vitamin C) atorvastatin 40 mg tablet 40 mg PO DAILY 03/27/25 03/27/25 History cholecalciferol (vitamin D3) 50 50 mcg PO DAILY 03/27/25 03/27/25 History mcg (2,000 unit) tablet (Vitamin D3) insulin lispro 100 unit/mL 6 unit subcut DIRECTED PRN 03/27/25 03/27/25 History subcutaneous pen Hyperglycemia magnesium 200 mg tablet 200 mg PO DAILY 03/27/25 03/27/25 History nitroglycerin 0.4 mg sublingual 0.4 mg sublingual DIRECTED PRN 03/27/25 03/27/25 History tablet Chest Pain zinc gluconate 30 mg tablet 30 mg PO DAILY 03/27/25 03/27/25 History metoprolol succinate 25 mg 25 mg PO HS #30 tabs 03/28/25 Rx tablet,extended release 24 hr Patient History Medical History (Updated 03/28/25 @ 14:10 by Poli Ortega MD) Degenerative disc disease Osteoarthritis Surgical History Family history of pseudocholinesterase deficiency FATHER "ALLERGY TO SUCCS" History of carpal tunnel release LEFT History of cholecystectomy History of appendectomy History of tooth extraction History of tonsillectomy Family History Grandmother Family history of diabetes mellitus Social History Smoking Status: Never smoker Second Hand Exposure: No; Do You Dip or Chew Tobacco: No; Hx Alcohol Use: Yes Alcohol type: wine Hx Substance Use: No Preferred Language: Chinese Communication Ability: Effective Brake Coupler Dinkey Required: No Beliefs That Will Affect Care: None Current Living Situation: Alone Other Information That Helps Us Care for You: No Feels Safe at Home: Yes Safety Concerns: Feels Safe At This Time Assistive Devices: Cane Review of Systems Review of Systems: Per HPI Physical Exam Physical Exam: She is alert and oriented x3. Mood affect appear normal. She answered all questions appropriately. HEENT: Sclerae are anicteric. Pupils are equal and reactive to light and accommodation. Extraocular movements were intact. Neuro: Cranial nerves intact Lungs: Normal respiratory effort. Cardiac: The rhythm was regular. Extremities: Patient has bilateral radial pulses that are equal in intensity. There is no evidence cyanosis or clubbing. There was no evidence of significant peripheral edema bilaterally. Skin: There are no rashes noted on examination today. Results & Data Vital Signs (Past 12 Hours) Vital Signs Temp Pulse Pulse Resp BP Pulse Ox O2 Del Method 03/28/25 07:42 36.5 C 62 16 152/72 H 97 Room Air 03/28/25 06:45 65 03/28/25 03:24 36.6 C 71 18 134/80 95 Room Air 03/28/25 02:41 156 H 137/90 Laboratory Results Abnormal Lab Results 03/27/25 03/27/25 03/28/25 10:18 18:03 06:54 WBC 5.66 RBC 4.70 Hgb 13.2 Hct 38.8 MCV 82.6 MCH 28.1 MCHC 34.0 RDW Std Deviation 40.8 RDW Coeff of Madhavi 13.6 Plt Count 233 MPV 10.8 Immature Gran % (Auto) 0.2 Neut % (Auto) 67.1 Lymph % (Auto) 21.0 [place] % (Auto) 7.4 Eos % (Auto) 3.4 Baso % (Auto) 0.9 Neut # (Auto) 3.80 Lymph # (Auto) 1.19 L [place] # (Auto) 0.42 Eos # (Auto) 0.19 Baso # (Auto) 0.05 Immature Gran # (Auto) 0.01 Sodium 142 Potassium 3.7 Chloride 111 H Carbon Dioxide 24 Anion Gap 7 BUN 16 Creatinine 1.11 Est Cr Clr Drug Dosing 39.7 eGFR 50.25 BUN/Creatinine Ratio 14.4 Glucose 182 H POC Glucose 158 H Estimat Average Glucose 260 Hemoglobin A1c 10.7 H Calcium 8.4 L Magnesium 2.1 Total Bilirubin 0.6 AST 12 L ALT 10 Alkaline Phosphatase 95 Total Protein 5.7 L Albumin 3.6 Globulin 2.1 L Albumin/Globulin Ratio 1.7 Triglycerides 74 Cholesterol 126 LDL Cholesterol, Calc 56 VLDL Cholesterol, Calc 15 HDL Cholesterol 55 Cholesterol/HDL Ratio 2.3 Vitamin B12 370 25-OH Vitamin D Total 102.3 H Lyme Disease Screen Negative 03/28/25 03/28/25 08:15 12:13 WBC RBC Hgb Hct MCV MCH MCHC RDW Std Deviation RDW Coeff of Madhavi Plt Count MPV Immature Gran % (Auto) Neut % (Auto) Lymph % (Auto) [place] % (Auto) Eos % (Auto) Baso % (Auto) Neut # (Auto) Lymph # (Auto) [place] # (Auto) Eos # (Auto) Baso # (Auto) Immature Gran # (Auto) Sodium Potassium Chloride Carbon Dioxide Anion Gap BUN Creatinine Est Cr Clr Drug Dosing eGFR BUN/Creatinine Ratio Glucose POC Glucose 168 H 99 Estimat Average Glucose Hemoglobin A1c Calcium Magnesium Total Bilirubin AST ALT Alkaline Phosphatase Total Protein Albumin Globulin Albumin/Globulin Ratio Triglycerides Cholesterol LDL Cholesterol, Calc VLDL Cholesterol, Calc HDL Cholesterol Cholesterol/HDL Ratio Vitamin B12 25-OH Vitamin D Total Lyme Disease Screen PG Care Time/CCT Total # of Minutes Spent Total Time Spent with Patient: Total time spent is greater than 50% in coordination of care (as documented) at patient's floor/unit and/or counseling patient: Coding Level of Care Code 84886 INT INP/OBS CARE 375MIN Diagnoses SVT (supraventricular tachycardia) I47.10
--- NOTE | 2025-03-28 17:44 | Electrocardiogram Report ---
Test Reason : Blood Pressure : */* mmHG Vent. Rate : 158 BPM Atrial Rate : 158 BPM P-R Int : 192 ms QRS Dur : 86 ms QT Int : 170 ms P-R-T Axes : 8 40 252 degrees QTcB Int : 275 ms Supraventricular tachycardia Abnormal ECG When compared with ECG of 27-Mar-2025 10:08, Vent. rate has increased by 90 bpm Non-specific change in ST segment in Inferior leads ST now depressed in Anterior leads Nonspecific T wave abnormality, worse in Inferior leads T wave inversion now evident in Anterior leads Confirmed by Poli Ortega ([id number]) on 03/28/2025 5:44:25 PM Referred By: REFERRED SELF Confirmed By: Poli Ortega
== END 2025-03-28 14:07 | disposition home or self-care (01) ==
LOC: SUATTDRO → ED 09:43 → EDINP 09:43 → 2N 17:19